=== PATIENT | male | born 1960 | race African-American/Black ===

== ENCOUNTER 2018-02-04 09:37 | Inpatient (IN) | payer OTHER ==
[2018-02-04 10:46] VITALS: BMI 25.7
--- NOTE | 2018-02-04 12:18 | HP ---
CIWA Score - CIWA Score Nausea/Vomitin-No Nausea/No Vomiting Muscle Tremors: None Anxiety: 0-No Anxiety, at Ease Agitation: 0-Normal Activity Paroxysmal Sweats: No Perspiration Orientation: 0-Oriented Tacttile Disturbances: 0-None Auditory Disturbances: 0-None Visual Disturbances: 0-None Headache: 0-None Present CIWA-Ar Total Score: 0 Admission ROS BHS - HPI Allergies/Adverse Reactions: Allergies Allergy/AdvReac Type Severity Reaction Status Date / Time No Known Allergies Allergy Verified 02/04/18 11:17 History of Present Illness: patient here requesting detox from etoh use reports 05/03 and a 6-pk daily , denies w/d symptoms, reports use x 18 years , denies seizures, tremors , blackouts , falls . most recent detox 8 yrs ago at this facility . currently asymptomatic . cannabis use : 15 $ /day cocaine 300 $ x 2-3 x/week tobacco : 6-7 cigs/day , does not want nrt benzo : denies utox + thc , arelis, bzo otoniel 0.000 vss pmhx /htn pshx : left jaw frx psych : denies meds : denies - Ebola screening Have you traveled outside of the country in the last 21 days: No Have you had contact with anyone from an Ebola affected area: No Have you been sick,other than usual withdrawal symptoms: No Do you have a fever: No - Review of Systems Constitutional: No Symptoms Reported EENT: reports: No Symptoms Reported Respiratory: reports: No Symptoms reported Cardiac: reports: No Symptoms Reported GI: reports: No Symptoms Reported : reports: No Symptoms Reported Musculoskeletal: reports: No Symptoms Reported Integumentary: reports: No Symptoms Reported Neuro: reports: No Symptoms reported Endocrine: reports: No Symptoms Reported Hematology: reports: No Symptoms Reported Psychiatric: reports: No Sypmtoms Reported, Judgement Intact, Orientated x3 Other Systems: Reviewed and Negative Patient History - Patient Medical History Hx Asthma: No Hx Chronic Obstructive Pulmonary Disease (COPD): No Hx Cardiac Disorders: No Hx Hypertension: Yes Hx Seizures: No Hx Diabetes: No Hx Gastrointestinal Disorders: Yes (acid reflux) Hx Genitourinary Disorders: No Hx Sexually Transmitted Disorders: No Hx Renal Disease (ESRD): No Hx Depression: No Hx Suicide Attempt: No Hx Schizophrenia: No - Patient Surgical History Past Surgical History: Yes Hx Neurologic Surgery: No Hx Cataract Extraction: No Hx Cardiac Surgery: No Hx Lung Surgery: No Hx Breast Surgery: No Hx Breast Biopsy: No Hx Abdominal Surgery: No Hx Appendectomy: No Hx Cholecystectomy: No Hx Genitourinary Surgery: No Hx Section: No Hx Orthopedic Surgery: Yes (left mandible in 1987) Anesthesia Reaction: No - PPD History Previous Implant?: Yes Documented Results: Positive w/o proof - Smoking Cessation Smoking history: Current every day smoker Have you smoked in the past 12 months: Yes Aproximately how many cigarettes per day: 6 Hx Chewing Tobacco Use: No Initiated information on smoking cessation: No - Substances Abused Crack Route: Smoking Frequency: 3-6 times per week Amount used: $150 Age of first use: 38 Date of Last Use: 02/03/18 Alcohol-vodka/beer Route: Oral Frequency: 3-6 times per week Amount used: 2-3 pts./2-6 pks. Age of first use: 21 Date of Last Use: 02/03/18 Marijuana Route: Smoking Frequency: Daily Amount used: $15 Age of first use: 19 Date of Last Use: 02/03/18 Family Disease History - Family Disease History Family History: Denies Admission Physical Exam BHS - Vital Signs Vital Signs: Vital Signs - 24 hr 02/04/18 10:43 Temperature 97.2 F L Pulse Rate 75 Respiratory 17 Rate Blood Pressure 142/87 - Physical General Appearance: Yes: No Apparent Distress, Nourished, Appropriately Dressed HEENTM: Yes: Within Normal Limits, EOMI, Hearing grossly Normal, Normal ENT Inspection, Normocephalic, Normal Voice, KAVON, Pharynx Normal, Other (reading glasses upper dentures poor dentition) Respiratory: Yes: Within Normal Limits, Chest Non-Tender, Lungs Clear, Normal Breath Sounds, No Respiratory Distress, No Accessory Muscle Use Neck: Yes: Within Normal Limits, No masses,lesions,Nodules, Trachea in good position Cardiology: Yes: Within Normal Limits, Regular Rhythm, Regular Rate Abdominal: Yes: Within Normal Limits, Normal Bowel Sounds, Non Tender, Flat, Soft Genitourinary: Yes: Within Normal Limits Back: Yes: Within Normal Limits, Normal Inspection Musculoskeletal: Yes: Within Normal Limits, full range of Motion, Gait Steady, Pelvis Stable Extremities: Yes: Normal Capillary Refill, Normal Inspection, Normal Range of Motion, Non-Tender, Pedal Edema, Other (edema bilateral symmetrical non- pitting to mid-calf) Neurological: Yes: Within Normal Limits, Fully Oriented, Alert, Motor Strength 5 /5, Normal Mood/Affect, Normal Response Integumentary: Yes: Within Normal Limits, Normal Color, Dry, Warm, Pitting Edema - Diagnostic (1) Cocaine dependence Current Visit: Yes Status: Acute Qualifiers: Substance use status: uncomplicated Qualified Code(s): F14.20 - Cocaine dependence, uncomplicated (2) Cannabis dependence Current Visit: Yes Status: Acute (3) Alcohol dependence Current Visit: Yes Status: Acute Qualifiers: Substance use status: uncomplicated Qualified Code(s): F10.20 - Alcohol dependence, uncomplicated (4) Nicotine dependence Current Visit: Yes Status: Acute Qualifiers: Nicotine product type: cigarettes BHS Breath Alcohol Content Breath Alcohol Content: 0 Urine Drug Screen - Results Drug Screen Negative: No Urine Drug Screen Results: THC-Marijuana, ARELIS-Cocaine, BZO-Benzodiazepines
[2018-02-04] MEDS ORDERED: cloNIDine HCL 0.1 MG TABLET PO PRN (12:25)
[2018-02-04] MEDS ORDERED: guaiFENesin/D-METHORPHAN HB 10 ML UNIT-DOSE CUPS PO PRN (12:39)
[2018-02-04] MEDS ORDERED: MAGNESIUM HYDROX 2400MG/30ML ORAL SUSPENSION 30 ML CUP PO PRN (12:39)
[2018-02-04] MEDS ORDERED: IBUPROFEN 400 MG TABLET (FP) PO PRN (12:39)
[2018-02-04] MEDS ORDERED: P-EPHED 60MG/TRIPROLIDI 2.5MG TABLET PO PRN (12:39)
[2018-02-04] MEDS ORDERED: MENTHOL/PHENOL 1 EACH UD MM PRN (12:39)
[2018-02-04] MEDS ORDERED: MAGNESIUM CITRATE 300 ML BOTTLE PO PRN (12:39)
[2018-02-04] MEDS ORDERED: ACETAMINOPHEN 325 MG TABLET (FP) PO PRN (12:39)
[2018-02-04] MEDS ORDERED: MAG HYDROX/AL HYDROX/SIMETH 30 ML UNIT-DOSE CUP PO PRN (12:39)
[2018-02-04 15:58] LABS: HEMATOCRIT 40.1 % (35.4-49); HEMOGLOBIN 13.3 GM/dL (11.7-16.9); MCH 34.4 pg (25.7-33.7); MCHC 33.1 g/dl (32.0-35.9); MEAN CELL VOLUME 104.1 fl (80-96); MEAN PLT VOLUME 10.4 fl (7.5-11.1); PLATELET COUNT 178 K/MM3 (134-434); RBC 3.85 M/mm3 (4.00-5.60); RDW 13.1 % (11.9-15.9); WHITE BLOOD COUNT 7.5 K/mm3 (4.0-10.0)
[2018-02-04 16:11] LABS: ALBUMIN 3.2 g/dl (3.4-5.0); ALK PHOS 77 U/L (45-117); ANION GAP 3 MMOL/L (8-16); BILIRUBIN,TOTAL 0.4 mg/dL (0.2-1); BLOOD UREA NITROGEN 17 mg/dL (7-18); CALCIUM 8.7 mg/dL (8.5-10.1); CHLORIDE 108 mmol/L (98-107); CO2 30 mmol/L (21-32); CREATININE 0.9 mg/dL (0.55-1.3); GLUCOSE,RANDOM 106 mg/dL (74-106); POTASSIUM 3.7 mmol/L (3.5-5.1); SGOT/AST 24 U/L (15-37); SGPT/ALT 29 U/L (13-61); SODIUM 141 mmol/L (136-145)
[2018-02-04] MEDS: THIAMINE HCL 100 MG TABLET (FP) PO SCH (22:10)
--- NOTE | 2018-02-05 06:47 | HP ---
Psychiatrist Admission - Data Date of interview: 02/05/18 Admission source: Self-referred Identifying data: This is the first [facility] admission for this 57 years old Black male, unemployedon public assistance, homeless Medical History: Significant for hypertension, GERD, PPD+, history of treatment for hepatitis C and surgery for fracture left mandible in 1987. Smokes 6 cigarettes daily Psychiatric History: Denies history of previous psychiatric treatment Additional Comment: Reports 2 previous misdemeanor arrests on charges of drinking in public Vital Signs: Vital Signs - 24 hr 02/04/18 02/04/18 02/05/18 10:43 18:00 00:30 Temperature 97.2 F L Pulse Rate 75 66 Respiratory 17 16 18 Rate Blood Pressure 142/87 153/84 Allergies/Adverse Reactions: Allergies Allergy/AdvReac Type Severity Reaction Status Date / Time No Known Allergies Allergy Verified 02/04/18 11:17 Date of last physical exam: 02/04/18 Concur with the findings of this exam: Yes - Substance Abuse/Tx History Hx Alcohol Use: Yes Hx Substance Use: Yes Substance Use Type: Alcohol (Started drinking alcohol at age 21, consumes 2-3 pints of vodka &2x 6pk of beer daily. Last drank on 02/03/18), Cocaine (Started smoking crack cocaine at age 38, consumes $150 worth 3-6 times weekly. Last smoked on 02/03/18 ), Marijuana (Started so=moking marijuana at age 19, consumes 415 worth daily. Last smoked on 02/03/18) Hx Substance Use Treatment: Yes (2-3 previous inpt detox & 2-3 inpt rehab) Mental Status Exam - Mental Status Exam Alert and Oriented to: Person Cognitive Function: Fair Patient Appearance: Well Groomed Mood: Irritable Affect: Appropriate Patient Behavior: Cooperative Speech Pattern: Clear Voice Loudness: Normal Thought Process: Intact Thought Disorder: Not Present Hallucinations: Denies Suicidal Ideation: Denies Homicidal Ideation: Denies Insight/Judgement: Fair Sleep: Fair Appetite: Good Muscle strength/Tone: Normal Gait/Station: Normal Psychiatric Findings - Problem List ([place] 1, 2,3) (1) Alcohol dependence Current Visit: Yes Status: Acute Qualifiers: Substance use status: uncomplicated Qualified Code(s): F10.20 - Alcohol dependence, uncomplicated (2) Cocaine dependence Current Visit: Yes Status: Acute Qualifiers: Substance use status: uncomplicated Qualified Code(s): F14.20 - Cocaine dependence, uncomplicated (3) Cannabis dependence Current Visit: Yes Status: Acute (4) Nicotine dependence Current Visit: Yes Status: Chronic Qualifiers: Nicotine product type: cigarettes (5) Substance induced mood disorder Current Visit: Yes Status: Acute (6) HTN (hypertension) Current Visit: Yes Status: Chronic (7) Hepatitis C Current Visit: Yes Status: Suspected (8) GERD (gastroesophageal reflux disease) Current Visit: Yes Status: Chronic - Initial Treatment Plan Initial Treatment Plan: Monitor progress
[2018-02-05] MEDS ORDERED: amLODIPine BESYLATE 5 MG TABLET (FP) PO SCH (10:00)
--- NOTE | 2018-02-05 10:11 | PN ---
[facility] Progress Note Note: PT REPORTS HX OF HTN AND ON HYDROCHLOROTHIAZIDE 25 MG/LISINOPRIL 20 MG PO DAILY AND NORVASC 5 MG PO DAILY. PT INSISTS HE HAS TO TAKE HIS MEDICATION ORDERED BY HIS DOCTOR. PT REPORT HE HAS A PMD AT [facility] [address] AND DOES NOT REMEMBER HIS NAME. SEEN ON PT'S OUTSIDE PHARMACY, PT IS TAKING ABOVE MEDICATIONS AND ANGRY THAT HE IS NOT ON IT. Vital Signs - 24 hr 02/04/18 02/04/18 02/05/18 10:43 18:00 00:30 Temperature 97.2 F L Pulse Rate 75 66 Respiratory 17 16 18 Rate Blood Pressure 142/87 153/84 02/05/18 06:57 Temperature 98.2 F Pulse Rate 89 Respiratory 18 Rate Blood Pressure 153/84 PLAN: REORDER LISINOPRIL 20 MG AND HYDROCHLOROTHIAZIDE 25 MG PO DAILY. HOLD NORVASC 5 MG FOR NOW. MAY ADD NORVASC 5 MG IF BP STILL UNCONTROLLED.
[2018-02-05] MEDS: PRENATAL VITAMINS W/ FOLIC ACID TABLET (FP) PO SCH (10:36)
[2018-02-05] MEDS: LISINOPRIL 20 MG TABLET (FP) PO SCH (10:38)
[2018-02-05] MEDS: HYDROCHLOROTHIAZIDE 25 MG TABLET (FP) PO SCH (10:38)
[2018-02-05] MEDS: THIAMINE HCL 100 MG TABLET (FP) PO SCH (22:02)
[2018-02-06] MEDS: LISINOPRIL 20 MG TABLET (FP) PO SCH (10:44)
[2018-02-06] MEDS: HYDROCHLOROTHIAZIDE 25 MG TABLET (FP) PO SCH (10:44)
[2018-02-06] MEDS: PRENATAL VITAMINS W/ FOLIC ACID TABLET (FP) PO SCH (10:44)
[2018-02-06] MEDS: THIAMINE HCL 100 MG TABLET (FP) PO SCH (22:12)
[2018-02-07] MEDS: HYDROCHLOROTHIAZIDE 25 MG TABLET (FP) PO SCH (10:25)
[2018-02-07] MEDS: LISINOPRIL 20 MG TABLET (FP) PO SCH (10:25)
[2018-02-07] MEDS: PRENATAL VITAMINS W/ FOLIC ACID TABLET (FP) PO SCH (10:26)
[2018-02-07] MEDS: THIAMINE HCL 100 MG TABLET (FP) PO SCH (21:47)
[2018-02-07] MEDS: MELATONIN 5 MG TABLETS PO PRN (21:47)
[2018-02-08] MEDS: LISINOPRIL 20 MG TABLET (FP) PO SCH (10:41)
[2018-02-08] MEDS: HYDROCHLOROTHIAZIDE 25 MG TABLET (FP) PO SCH (10:41)
[2018-02-08] MEDS: PRENATAL VITAMINS W/ FOLIC ACID TABLET (FP) PO SCH (10:41)
[2018-02-08] MEDS: MELATONIN 5 MG TABLETS PO PRN (21:40)
[2018-02-08] MEDS: THIAMINE HCL 100 MG TABLET (FP) PO SCH (21:40)
[2018-02-09] MEDS: hydrOXYzine PAMOATE 25 MG CAPSULE (FP) PO PRN (06:35)
[2018-02-09] MEDS: LISINOPRIL 20 MG TABLET (FP) PO SCH (10:38)
[2018-02-09] MEDS: HYDROCHLOROTHIAZIDE 25 MG TABLET (FP) PO SCH (10:38)
[2018-02-09] MEDS: PRENATAL VITAMINS W/ FOLIC ACID TABLET (FP) PO SCH (10:38)
[2018-02-09] MEDS: THIAMINE HCL 100 MG TABLET (FP) PO SCH (21:25)
[2018-02-10] MEDS: LISINOPRIL 20 MG TABLET (FP) PO SCH (10:56)
[2018-02-10] MEDS: PRENATAL VITAMINS W/ FOLIC ACID TABLET (FP) PO SCH (10:56)
[2018-02-10] MEDS: HYDROCHLOROTHIAZIDE 25 MG TABLET (FP) PO SCH (10:56)
[2018-02-10] MEDS: amLODIPine BESYLATE 5 MG TABLET (FP) PO SCH (12:07)
--- NOTE | 2018-02-10 12:17 | PN ---
S Progress Note (SOAP) Subjective: C/O PAIN AND A BUMP TO LEFT SIDE OF LEFT SOLE STATING HE HAS HAD THIS BUMP FOR MORE THAN A YEAR BUT IS NOW FEELING PAIN ON THE AREA. ALERT O X 3. AMBULATES WITH A WALKER. FOOT EXAM;DRY AND ASHY; SOLE WITH CALLUSED SKIN. PLAN:WARM FOOT SOAK DIRECTED LAC HYDRIN CREAM 12% DAILY DIRECTED. BACITRACIN OINTMENT TO AFFECTED AREA DAILY
[2018-02-10] MEDS: AMMONIUM LACTATE 12% LOTION 225 GM BOTTLE TP SCH (14:50)
[2018-02-10] MEDS: BACITRACIN 15 GM TUBE TOPICAL OINTMENT TP SCH ×2 (14:50→21:51)
[2018-02-10] MEDS: THIAMINE HCL 100 MG TABLET (FP) PO SCH (21:51)
[2018-02-11] MEDS: LISINOPRIL 20 MG TABLET (FP) PO SCH (10:28)
[2018-02-11] MEDS: amLODIPine BESYLATE 5 MG TABLET (FP) PO SCH (10:28)
[2018-02-11] MEDS: HYDROCHLOROTHIAZIDE 25 MG TABLET (FP) PO SCH (10:28)
[2018-02-11] MEDS: AMMONIUM LACTATE 12% LOTION 225 GM BOTTLE TP SCH (10:29)
[2018-02-11] MEDS: BACITRACIN 15 GM TUBE TOPICAL OINTMENT TP SCH ×2 (10:29→21:53)
[2018-02-11] MEDS: PRENATAL VITAMINS W/ FOLIC ACID TABLET (FP) PO SCH (10:30)
[2018-02-11] MEDS: THIAMINE HCL 100 MG TABLET (FP) PO SCH (21:53)
[2018-02-12] MEDS: LISINOPRIL 20 MG TABLET (FP) PO SCH (10:27)
[2018-02-12] MEDS: HYDROCHLOROTHIAZIDE 25 MG TABLET (FP) PO SCH (10:27)
[2018-02-12] MEDS: amLODIPine BESYLATE 5 MG TABLET (FP) PO SCH (10:27)
[2018-02-12] MEDS: AMMONIUM LACTATE 12% LOTION 225 GM BOTTLE TP SCH (10:28)
[2018-02-12] MEDS: BACITRACIN 15 GM TUBE TOPICAL OINTMENT TP SCH ×2 (10:28→21:48)
[2018-02-12] MEDS: PRENATAL VITAMINS W/ FOLIC ACID TABLET (FP) PO SCH (10:28)
[2018-02-12] MEDS: THIAMINE HCL 100 MG TABLET (FP) PO SCH (21:48)
[2018-02-12] MEDS: hydrOXYzine PAMOATE 25 MG CAPSULE (FP) PO PRN (21:48)
[2018-02-13] MEDS: AMMONIUM LACTATE 12% LOTION 225 GM BOTTLE TP SCH (10:27)
[2018-02-13] MEDS: amLODIPine BESYLATE 5 MG TABLET (FP) PO SCH (10:28)
[2018-02-13] MEDS: PRENATAL VITAMINS W/ FOLIC ACID TABLET (FP) PO SCH (10:28)
[2018-02-13] MEDS: HYDROCHLOROTHIAZIDE 25 MG TABLET (FP) PO SCH (10:28)
[2018-02-13] MEDS: BACITRACIN 15 GM TUBE TOPICAL OINTMENT TP SCH ×2 (10:28→21:54)
[2018-02-13] MEDS: LISINOPRIL 20 MG TABLET (FP) PO SCH (10:28)
[2018-02-13] MEDS: THIAMINE HCL 100 MG TABLET (FP) PO SCH (21:54)
[2018-02-14] MEDS: LISINOPRIL 20 MG TABLET (FP) PO SCH (10:26)
[2018-02-14] MEDS: HYDROCHLOROTHIAZIDE 25 MG TABLET (FP) PO SCH (10:26)
[2018-02-14] MEDS: amLODIPine BESYLATE 5 MG TABLET (FP) PO SCH (10:26)
[2018-02-14] MEDS: BACITRACIN 15 GM TUBE TOPICAL OINTMENT TP SCH ×2 (10:27→21:45)
[2018-02-14] MEDS: PRENATAL VITAMINS W/ FOLIC ACID TABLET (FP) PO SCH (10:27)
[2018-02-14] MEDS: AMMONIUM LACTATE 12% LOTION 225 GM BOTTLE TP SCH (10:27)
[2018-02-14] MEDS: THIAMINE HCL 100 MG TABLET (FP) PO SCH (21:45)
[2018-02-15] MEDS: LISINOPRIL 20 MG TABLET (FP) PO SCH (10:28)
[2018-02-15] MEDS: PRENATAL VITAMINS W/ FOLIC ACID TABLET (FP) PO SCH (10:28)
[2018-02-15] MEDS: amLODIPine BESYLATE 5 MG TABLET (FP) PO SCH (10:28)
[2018-02-15] MEDS: AMMONIUM LACTATE 12% LOTION 225 GM BOTTLE TP SCH (10:29)
[2018-02-15] MEDS: BACITRACIN 15 GM TUBE TOPICAL OINTMENT TP SCH ×2 (10:29→21:55)
[2018-02-15] MEDS: HYDROCHLOROTHIAZIDE 25 MG TABLET (FP) PO SCH (10:29)
[2018-02-15] MEDS: THIAMINE HCL 100 MG TABLET (FP) PO SCH (21:55)
[2018-02-16] MEDS: PRENATAL VITAMINS W/ FOLIC ACID TABLET (FP) PO SCH (10:18)
[2018-02-16] MEDS: amLODIPine BESYLATE 5 MG TABLET (FP) PO SCH (10:18)
[2018-02-16] MEDS: LISINOPRIL 20 MG TABLET (FP) PO SCH (10:18)
[2018-02-16] MEDS: HYDROCHLOROTHIAZIDE 25 MG TABLET (FP) PO SCH (10:18)
[2018-02-16] MEDS: BACITRACIN 15 GM TUBE TOPICAL OINTMENT TP SCH ×2 (10:19→21:49)
[2018-02-16] MEDS: AMMONIUM LACTATE 12% LOTION 225 GM BOTTLE TP SCH (10:19)
[2018-02-16] MEDS: THIAMINE HCL 100 MG TABLET (FP) PO SCH (21:49)
[2018-02-17] MEDS: amLODIPine BESYLATE 5 MG TABLET (FP) PO SCH (10:12)
[2018-02-17] MEDS: PRENATAL VITAMINS W/ FOLIC ACID TABLET (FP) PO SCH (10:12)
[2018-02-17] MEDS: HYDROCHLOROTHIAZIDE 25 MG TABLET (FP) PO SCH (10:12)
[2018-02-17] MEDS: LISINOPRIL 20 MG TABLET (FP) PO SCH (10:12)
[2018-02-17] MEDS: BACITRACIN 15 GM TUBE TOPICAL OINTMENT TP SCH ×2 (10:13→21:53)
[2018-02-17] MEDS: AMMONIUM LACTATE 12% LOTION 225 GM BOTTLE TP SCH (10:13)
--- NOTE | 2018-02-17 14:28 | PN ---
BHS Progress Note Note: Patient reports experiencing difficulty to sleep despite taking Melatonin at bedtime. Will order Belsomra 10 mg po HS prn for insomnia
[2018-02-17] MEDS: THIAMINE HCL 100 MG TABLET (FP) PO SCH (21:53)
[2018-02-17] MEDS: SUVOREXANT 10 MG TABLET PO PRN (21:53)
[2018-02-18] MEDS: AMMONIUM LACTATE 12% LOTION 225 GM BOTTLE TP SCH (10:17)
[2018-02-18] MEDS: amLODIPine BESYLATE 5 MG TABLET (FP) PO SCH (10:18)
[2018-02-18] MEDS: BACITRACIN 15 GM TUBE TOPICAL OINTMENT TP SCH ×2 (10:18→21:37)
[2018-02-18] MEDS: LISINOPRIL 20 MG TABLET (FP) PO SCH (10:18)
[2018-02-18] MEDS: HYDROCHLOROTHIAZIDE 25 MG TABLET (FP) PO SCH (10:18)
[2018-02-18] MEDS: PRENATAL VITAMINS W/ FOLIC ACID TABLET (FP) PO SCH (10:19)
[2018-02-18] MEDS: THIAMINE HCL 100 MG TABLET (FP) PO SCH (21:37)
[2018-02-18] MEDS: SUVOREXANT 10 MG TABLET PO PRN (21:38)
[2018-02-19] MEDS: PRENATAL VITAMINS W/ FOLIC ACID TABLET (FP) PO SCH (10:39)
[2018-02-19] MEDS: HYDROCHLOROTHIAZIDE 25 MG TABLET (FP) PO SCH (10:39)
[2018-02-19] MEDS: amLODIPine BESYLATE 5 MG TABLET (FP) PO SCH (10:39)
[2018-02-19] MEDS: LISINOPRIL 20 MG TABLET (FP) PO SCH (10:39)
[2018-02-19] MEDS: AMMONIUM LACTATE 12% LOTION 225 GM BOTTLE TP SCH (10:40)
[2018-02-19] MEDS: BACITRACIN 15 GM TUBE TOPICAL OINTMENT TP SCH ×2 (10:40→22:11)
[2018-02-19] MEDS: THIAMINE HCL 100 MG TABLET (FP) PO SCH (22:09)
[2018-02-19] MEDS: SUVOREXANT 10 MG TABLET PO PRN (22:11)
[2018-02-20] MEDS: LISINOPRIL 20 MG TABLET (FP) PO SCH (10:22)
[2018-02-20] MEDS: amLODIPine BESYLATE 5 MG TABLET (FP) PO SCH (10:22)
[2018-02-20] MEDS: HYDROCHLOROTHIAZIDE 25 MG TABLET (FP) PO SCH (10:22)
[2018-02-20] MEDS: PRENATAL VITAMINS W/ FOLIC ACID TABLET (FP) PO SCH (10:22)
[2018-02-20] MEDS: AMMONIUM LACTATE 12% LOTION 225 GM BOTTLE TP SCH (10:23)
[2018-02-20] MEDS: BACITRACIN 15 GM TUBE TOPICAL OINTMENT TP SCH ×2 (10:23→22:07)
--- NOTE | 2018-02-20 17:55 | PN ---
BHS Progress Note Note: Psychiatric nurse practitoner note: Pooja 10mg renewed. verbal consent given.
[2018-02-20] MEDS: SUVOREXANT 10 MG TABLET PO PRN (22:07)
[2018-02-20] MEDS: THIAMINE HCL 100 MG TABLET (FP) PO SCH (22:07)
[2018-02-21] MEDS: PRENATAL VITAMINS W/ FOLIC ACID TABLET (FP) PO SCH (10:24)
[2018-02-21] MEDS: AMMONIUM LACTATE 12% LOTION 225 GM BOTTLE TP SCH (10:24)
[2018-02-21] MEDS: BACITRACIN 15 GM TUBE TOPICAL OINTMENT TP SCH ×2 (10:24→21:52)
[2018-02-21] MEDS: LISINOPRIL 20 MG TABLET (FP) PO SCH (10:24)
[2018-02-21] MEDS: amLODIPine BESYLATE 5 MG TABLET (FP) PO SCH (10:24)
[2018-02-21] MEDS: HYDROCHLOROTHIAZIDE 25 MG TABLET (FP) PO SCH (10:24)
[2018-02-21] MEDS: SUVOREXANT 10 MG TABLET PO PRN (21:51)
[2018-02-21] MEDS: THIAMINE HCL 100 MG TABLET (FP) PO SCH (21:52)
[2018-02-22] MEDS: LISINOPRIL 20 MG TABLET (FP) PO SCH (10:35)
[2018-02-22] MEDS: amLODIPine BESYLATE 5 MG TABLET (FP) PO SCH (10:35)
[2018-02-22] MEDS: HYDROCHLOROTHIAZIDE 25 MG TABLET (FP) PO SCH (10:35)
[2018-02-22] MEDS: PRENATAL VITAMINS W/ FOLIC ACID TABLET (FP) PO SCH (10:36)
[2018-02-22] MEDS: BACITRACIN 15 GM TUBE TOPICAL OINTMENT TP SCH ×2 (10:36→21:47)
[2018-02-22] MEDS: AMMONIUM LACTATE 12% LOTION 225 GM BOTTLE TP SCH (10:36)
[2018-02-22] MEDS: THIAMINE HCL 100 MG TABLET (FP) PO SCH (21:47)
[2018-02-22] MEDS: SUVOREXANT 10 MG TABLET PO PRN (21:48)
[2018-02-23] MEDS: LISINOPRIL 20 MG TABLET (FP) PO SCH (10:03)
[2018-02-23] MEDS: amLODIPine BESYLATE 5 MG TABLET (FP) PO SCH (10:03)
[2018-02-23] MEDS: BACITRACIN 15 GM TUBE TOPICAL OINTMENT TP SCH ×3 (10:03→22:34)
[2018-02-23] MEDS: AMMONIUM LACTATE 12% LOTION 225 GM BOTTLE TP SCH (10:03)
[2018-02-23] MEDS: HYDROCHLOROTHIAZIDE 25 MG TABLET (FP) PO SCH (10:03)
[2018-02-23] MEDS: PRENATAL VITAMINS W/ FOLIC ACID TABLET (FP) PO SCH (10:04)
[2018-02-23] MEDS: THIAMINE HCL 100 MG TABLET (FP) PO SCH (22:06)
[2018-02-23] MEDS: MELATONIN 5 MG TABLETS PO PRN (22:06)
[2018-02-24] MEDS: HYDROCHLOROTHIAZIDE 25 MG TABLET (FP) PO SCH (10:49)
[2018-02-24] MEDS: amLODIPine BESYLATE 5 MG TABLET (FP) PO SCH (10:49)
[2018-02-24] MEDS: LISINOPRIL 20 MG TABLET (FP) PO SCH (10:49)
[2018-02-24] MEDS: AMMONIUM LACTATE 12% LOTION 225 GM BOTTLE TP SCH (10:50)
[2018-02-24] MEDS: PRENATAL VITAMINS W/ FOLIC ACID TABLET (FP) PO SCH (10:50)
[2018-02-24] MEDS: BACITRACIN 15 GM TUBE TOPICAL OINTMENT TP SCH ×2 (10:50→22:14)
[2018-02-24] MEDS: THIAMINE HCL 100 MG TABLET (FP) PO SCH (22:14)
[2018-02-24] MEDS: MELATONIN 5 MG TABLETS PO PRN (22:14)
[2018-02-24] MEDS: hydrOXYzine PAMOATE 25 MG CAPSULE (FP) PO PRN (22:16)
[2018-02-25] MEDS: amLODIPine BESYLATE 5 MG TABLET (FP) PO SCH (10:46)
[2018-02-25] MEDS: HYDROCHLOROTHIAZIDE 25 MG TABLET (FP) PO SCH (10:46)
[2018-02-25] MEDS: LISINOPRIL 20 MG TABLET (FP) PO SCH (10:46)
[2018-02-25] MEDS: PRENATAL VITAMINS W/ FOLIC ACID TABLET (FP) PO SCH (10:47)
[2018-02-25] MEDS: AMMONIUM LACTATE 12% LOTION 225 GM BOTTLE TP SCH (10:47)
[2018-02-25] MEDS: BACITRACIN 15 GM TUBE TOPICAL OINTMENT TP SCH ×2 (10:47→22:01)
[2018-02-25] MEDS: THIAMINE HCL 100 MG TABLET (FP) PO SCH (22:02)
[2018-02-26] MEDS: HYDROCHLOROTHIAZIDE 25 MG TABLET (FP) PO SCH (10:38)
[2018-02-26] MEDS: amLODIPine BESYLATE 5 MG TABLET (FP) PO SCH (10:38)
[2018-02-26] MEDS: LISINOPRIL 20 MG TABLET (FP) PO SCH (10:38)
[2018-02-26] MEDS: AMMONIUM LACTATE 12% LOTION 225 GM BOTTLE TP SCH (10:39)
[2018-02-26] MEDS: BACITRACIN 15 GM TUBE TOPICAL OINTMENT TP SCH ×2 (10:39→21:53)
[2018-02-26] MEDS: PRENATAL VITAMINS W/ FOLIC ACID TABLET (FP) PO SCH (10:40)
[2018-02-26] MEDS: THIAMINE HCL 100 MG TABLET (FP) PO SCH (21:53)
[2018-02-26] MEDS: MELATONIN 5 MG TABLETS PO PRN (21:53)
[2018-02-26] MEDS: SUVOREXANT 10 MG TABLET PO PRN (22:54)
--- NOTE | 2018-02-26 22:58 | PN ---
[facility] Progress Note Note: Psychiatry Attending's on-call note : Asked to renew order for belsomra. In response to patient's complaint of refractory insomnia. Chart reviewed. Vitals checked. History taken. Spoke to the patient. Via telephone. Mr Self endorses favorable results from suvorexant. No adverse effects. Improved sleep patterns. Enjoys restful night. Patient insists on the availability of that medication. Discussed : Side effects/benefits of belsomra + virtues of good sleep hygiene. Progress notes from Dr Ac + ALEKSANDRA Sanchez are read and appreciated. Intervention : belsomra 10 mg po hs prn. Re-ordered. Discussed with ADY Vang.
[2018-02-27] MEDS: amLODIPine BESYLATE 5 MG TABLET (FP) PO SCH (11:00)
[2018-02-27] MEDS: LISINOPRIL 20 MG TABLET (FP) PO SCH (11:01)
[2018-02-27] MEDS: PRENATAL VITAMINS W/ FOLIC ACID TABLET (FP) PO SCH (11:01)
[2018-02-27] MEDS: HYDROCHLOROTHIAZIDE 25 MG TABLET (FP) PO SCH (11:01)
[2018-02-27] MEDS: AMMONIUM LACTATE 12% LOTION 225 GM BOTTLE TP SCH (11:02)
[2018-02-27] MEDS: BACITRACIN 15 GM TUBE TOPICAL OINTMENT TP SCH ×2 (11:02→21:56)
[2018-02-27] MEDS: THIAMINE HCL 100 MG TABLET (FP) PO SCH (21:56)
[2018-02-27] MEDS: SUVOREXANT 10 MG TABLET PO PRN (21:56)
[2018-02-28] MEDS: LISINOPRIL 20 MG TABLET (FP) PO SCH (10:45)
[2018-02-28] MEDS: HYDROCHLOROTHIAZIDE 25 MG TABLET (FP) PO SCH (10:45)
[2018-02-28] MEDS: amLODIPine BESYLATE 5 MG TABLET (FP) PO SCH (10:45)
[2018-02-28] MEDS: PRENATAL VITAMINS W/ FOLIC ACID TABLET (FP) PO SCH (10:46)
[2018-02-28] MEDS: AMMONIUM LACTATE 12% LOTION 225 GM BOTTLE TP SCH (10:46)
[2018-02-28] MEDS: BACITRACIN 15 GM TUBE TOPICAL OINTMENT TP SCH ×2 (10:46→21:42)
[2018-02-28] MEDS: THIAMINE HCL 100 MG TABLET (FP) PO SCH (21:42)
[2018-02-28] MEDS: SUVOREXANT 10 MG TABLET PO PRN (21:42)
[2018-03-01] MEDS: AMMONIUM LACTATE 12% LOTION 225 GM BOTTLE TP SCH (10:07)
[2018-03-01] MEDS: LISINOPRIL 20 MG TABLET (FP) PO SCH (10:07)
[2018-03-01] MEDS: HYDROCHLOROTHIAZIDE 25 MG TABLET (FP) PO SCH (10:07)
[2018-03-01] MEDS: amLODIPine BESYLATE 5 MG TABLET (FP) PO SCH (10:07)
[2018-03-01] MEDS: BACITRACIN 15 GM TUBE TOPICAL OINTMENT TP SCH ×2 (10:07→21:59)
[2018-03-01] MEDS: PRENATAL VITAMINS W/ FOLIC ACID TABLET (FP) PO SCH (10:08)
[2018-03-01] MEDS: SUVOREXANT 10 MG TABLET PO PRN (21:58)
[2018-03-01] MEDS: THIAMINE HCL 100 MG TABLET (FP) PO SCH (21:59)
[2018-03-02] MEDS: HYDROCHLOROTHIAZIDE 25 MG TABLET (FP) PO SCH (10:12)
[2018-03-02] MEDS: LISINOPRIL 20 MG TABLET (FP) PO SCH (10:12)
[2018-03-02] MEDS: amLODIPine BESYLATE 5 MG TABLET (FP) PO SCH (10:12)
[2018-03-02] MEDS: BACITRACIN 15 GM TUBE TOPICAL OINTMENT TP SCH ×2 (10:13→21:59)
[2018-03-02] MEDS: AMMONIUM LACTATE 12% LOTION 225 GM BOTTLE TP SCH (10:13)
[2018-03-02] MEDS: PRENATAL VITAMINS W/ FOLIC ACID TABLET (FP) PO SCH (10:13)
[2018-03-02] MEDS: THIAMINE HCL 100 MG TABLET (FP) PO SCH (22:00)
[2018-03-03] MEDS: LISINOPRIL 20 MG TABLET (FP) PO SCH (10:50)
[2018-03-03] MEDS: amLODIPine BESYLATE 5 MG TABLET (FP) PO SCH (10:50)
[2018-03-03] MEDS: HYDROCHLOROTHIAZIDE 25 MG TABLET (FP) PO SCH (10:50)
[2018-03-03] MEDS: AMMONIUM LACTATE 12% LOTION 225 GM BOTTLE TP SCH (10:51)
[2018-03-03] MEDS: BACITRACIN 15 GM TUBE TOPICAL OINTMENT TP SCH ×2 (10:51→21:48)
[2018-03-03] MEDS: PRENATAL VITAMINS W/ FOLIC ACID TABLET (FP) PO SCH (10:51)
--- NOTE | 2018-03-03 15:06 | PN ---
BHS Progress Note Note: Prescription Bp meds sent to [facility] in view of pt's discharge in the a.m per ADY Anderson's request.
--- NOTE | 2018-03-03 15:40 | PN ---
Psychiatric Progress Note Vital Signs: Vital Signs Period Temp Pulse Resp BP Sys/Cohen Pulse Ox Last 24 Hr 99.5 F 70 16-18 128/84 Date of Session: 03/03/18 Chief Complaint:: Discharge visit HPI: Case of a 57 y/o AA male admitted to [address] to address alcohol , cocaine and marihuana dependence. Rehabilitation treatment is completed. Patient is scheduled for dischareg on 03/04/18. ROS: Hypertension and GERD have been addressed. Patient is alert, fully oriented , ambulatory (with cane). No somatic complaints offered. Current Medications: Active Medications Generic Name Dose Route Start Last Admin Trade Name Freq PRN Reason Stop Dose Admin Acetaminophen 650 mg 02/04/18 12:39 Tylenol - PO Q4H PRN FEVER Al Hydroxide/Mg Hydroxide 30 ml 02/04/18 12:39 Mylanta Oral Suspension - PO Q6H PRN DYSPEPSIA Amlodipine Besylate 5 mg 02/10/18 12:00 03/03/18 10:50 Norvasc - PO 5 mg DAILY NOEMÍ Administration Bacitracin 1 applic 02/10/18 12:15 03/03/18 10:51 Bacitracin - TP Not Given BID NOEMÍ Eucalyptus/Menthol/Phenol/Sorbitol 1 each 02/04/18 12:39 Cepastat Lozenge - MM Q4H PRN SORE THROAT Guaifenesin 10 ml 02/04/18 12:39 Robitussin Dm - PO Q6H PRN COUGH Hydrochlorothiazide 25 mg 02/05/18 10:15 03/03/18 10:50 Hctz - PO 25 mg DAILY NOEMÍ Administration Hydroxyzine Pamoate 25 mg 02/04/18 12:39 02/24/18 22:16 Vistaril - PO 25 mg Q4H PRN Administration AGITATION Ibuprofen 400 mg 02/04/18 12:39 02/07/18 10:25 Motrin - PO 400 mg Q6H PRN Administration Pain level 4-6 Lactic Acid 1 applic 02/10/18 12:15 03/03/18 10:51 Lac-Hydrin 12 TP Not Given DAILY NOEMÍ Lisinopril 20 mg 02/05/18 10:15 03/03/18 10:50 Prinivil PO 20 mg DAILY NOEMÍ Administration Magnesium Citrate 300 ml 02/04/18 12:39 Citroma - PO Q48H PRN CONSTIPATION Magnesium Hydroxide 30 ml 02/04/18 12:39 Milk Of Magnesia - PO DAILY PRN CONSTIPATION Multivit/Folic Acid/Iron 1 tab 02/05/18 10:00 03/03/18 10:51 Vitamins (Sjr) - PO Not Given DAILY NOEMÍ Pseudoephedrine/Triprolidine 1 combo 02/04/18 12:39 Actifed - PO TID PRN NASAL CONGESTION Thiamine HCl 100 mg 02/04/18 22:00 03/02/18 22:00 Vitamin B1 - PO Not Given HS NOEMÍ Medication(s) Change(s): Not applicable. Mr Self is not on psychotropic medications. Current Side Effect: No Lab tests ordered: No Lab tests reviewed: Yes Provider note:: Patient has completed this program. He has met his treatment goals and he will continue to address his issues in outpatient setting at the [facility] in [place], [place] (see counselor referral package for details). Scheduled for intake on 03/04/18 at 11:00 AM. Mr Self is referred to the [facility] ([phone]) for assisted placement. Medical issues ( hypertension,GERD) were addressed. Patient is observed as neatly groomed, conversant, relaxed, pleasant and cognitively intact. Endorses euthymic mood, adequate energy level, improved sleep patterns and motivation for maintenance of sobriety. Patient declares that he has benefited from his care at [facility] and he indicates his intent to incorporate in his lifestyle the principles learned in therapy sessions. Determined to distanced himself from triggers that could lead to relapses. Patient comments that he will invest his energy into addressing issues of chronic unemployment, housing and maintenance of wellness. Adherent to 12 step doctrine. Treated on [address] [place] without psychotropic medications. Stable mental status. Patient is not a danger to self or others. Baseline. Awaits discharge scheduled for 03/04/18. Total face to face time:: 35 Mental Status Exam - Mental Status Exam Alert and Oriented to: Time, Place, Person Cognitive Function: Good Patient Appearance: Well Groomed Mood: Hopeful, Euthymic Affect: Appropriate, Normal Range Patient Behavior: Appropriate, Cooperative Speech Pattern: Clear, Appropriate Voice Loudness: Normal Thought Process: Intact, Goal Oriented Thought Disorder: Not Present Hallucinations: Denies Suicidal Ideation: Denies Homicidal Ideation: Denies Insight/Judgement: Good Sleep: Well Appetite: Good Muscle strength/Tone: Normal Gait/Station: Other (walks with a cane due to foot problems) Psychiatric Treatment Plan - Problem List (1) Alcohol dependence Current Visit: Yes Qualifiers: Substance use status: uncomplicated Qualified Code(s): F10.20 - Alcohol dependence, uncomplicated Comment: . (2) Cannabis dependence Current Visit: Yes Comment: . (3) Cocaine dependence Current Visit: Yes Qualifiers: Substance use status: uncomplicated Qualified Code(s): F14.20 - Cocaine dependence, uncomplicated Comment: . (4) Nicotine dependence Current Visit: Yes Qualifiers: Nicotine product type: cigarettes Comment: .
[2018-03-03] MEDS: THIAMINE HCL 100 MG TABLET (FP) PO SCH (21:48)
[2018-03-04 06:50] VITALS: BP 139/95; PULSE 72; TEMP 98.2
[2018-03-04] MEDS: HYDROCHLOROTHIAZIDE 25 MG TABLET (FP) PO SCH (09:58)
[2018-03-04] MEDS: amLODIPine BESYLATE 5 MG TABLET (FP) PO SCH (09:58)
[2018-03-04] MEDS: BACITRACIN 15 GM TUBE TOPICAL OINTMENT TP SCH (09:58)
[2018-03-04] MEDS: LISINOPRIL 20 MG TABLET (FP) PO SCH (09:58)
[2018-03-04] MEDS: PRENATAL VITAMINS W/ FOLIC ACID TABLET (FP) PO SCH (09:59)
[2018-03-04] MEDS: AMMONIUM LACTATE 12% LOTION 225 GM BOTTLE TP SCH (09:59)
--- NOTE | 2018-03-04 11:25 | PN ---
[facility] Progress Note Note: Called by nursing staff to enter discharge order for patient who already left the unit to get transportation to his destination. He is referred to the [facility] housing and [facility] at [address] [place] [address] for outpatient treatment. According to nursing staff. patient is stable on discharge. Refer to staff note for further information
== END 2018-03-04 10:30 | disposition home or self-care (01) | DRG 772 ==
LOC: YASAS 09:37 → UNDOADMIN 15:42 → Y3N 15:42 → Y5N 16:26
PROVIDERS: ADMIT Psychiatry & Neurology Psychiatry; ATTEND Psychiatry & Neurology Psychiatry
PROC: HZ42ZZZ Group Counseling for Substance Abuse Treatment, Cognitive-Behavioral (ICD-10-PCS; principal; 2018-02-04)
DX: F10.20 Alcohol dependence, uncomplicated (principal); F14.20 Cocaine dependence, uncomplicated; F12.20 Cannabis dependence, uncomplicated; F17.210 Nicotine dependence, cigarettes, uncomplicated; F19.24 Other psychoactive substance dependence with psychoactive substance-induced mood disorder; I10 Essential (primary) hypertension; K21.9 Gastro-esophageal reflux disease without esophagitis; R76.11 Nonspecific reaction to tuberculin skin test without active tuberculosis; Z86.19 Personal history of other infectious and parasitic diseases; L84 Corns and callosities; R26.89 Other abnormalities of gait and mobility; Z99.89 Dependence on other enabling machines and devices
CPT/HCPCS: 36415; 71045-TC-FY; 80053; 85027; 86593; J0735

== ENCOUNTER 2018-08-14 13:15 | Inpatient (IN) | payer OTHER ==
[2018-08-14 14:13] VITALS: BMI 23.3
--- NOTE | 2018-08-14 15:03 | HP ---
CIWA Score Nausea/Vomitin Muscle Tremors: 2 Anxiety: 2 Agitation: 2 Paroxysmal Sweats: 1-Minimal Palms Moist Orientation: 0-Oriented Tacttile Disturbances: 1-Very Mild Itch/Numbness Auditory Disturbances: 1-Very Mild Visual Disturbances: 0-None Headache: 2-Mild CIWA-Ar Total Score: 13 - Admission Criteria OASAS Guidelines: Admission for Medically Managed Detox: Requires at least one of the followin. CIWA greater than 12 2. Seizures within the past 24 hours 3. Delirium tremens within the past 24 hours 4. Hallucinations within the past 24 hours 5. Acute intervention needed for co occurring medical disorder 6. Acute intervention needed for co occurring psychiatric disorder 7. Severe withdrawal that cannot be handled at a lower level of care (continued vomiting, continued diarrhea, abnormal vital signs) requiring intravenous medication and/or fluids 8. Admission ROS BHS - HPI Chief Complaint: I need help to stop drinking alcohol,cocaine and marijuana Allergies/Adverse Reactions: Allergies Allergy/AdvReac Type Severity Reaction Status Date / Time No Known Allergies Allergy Verified 08/14/18 14:07 History of Present Illness: this 58 years old male with alcohol,cocaine and marijuana dependence,seeking detox,withdrawal symptom had previous admission before last [facility] 02/04/18 to 03/04/18 history of hypertension hepatitis c treated at [facility] syncope alcohol related weight loss longest period of sobriety 5 years plan for rehab Exam Limitations: No Limitations - Ebola screening Have you traveled outside of the country in the last 21 days: No Have you had contact with anyone from an Ebola affected area: No Do you have a fever: No - Review of Systems Constitutional: Loss of Appetite, Malaise, Night Sweats, Changes in sleep, Unintentional Wgt. Loss EENT: reports: Nose Congestion Respiratory: reports: No Symptoms reported Cardiac: reports: No Symptoms Reported : reports: No Symptoms Reported Musculoskeletal: reports: Back Pain, Muscle Pain Integumentary: reports: Dryness Endocrine: reports: No Symptoms Reported Hematology: reports: No Symptoms Reported Psychiatric: reports: No Sypmtoms Reported, Judgement Intact, Mood/Affect Appropiate, Orientated x3 Other Systems: Reviewed and Negative Patient History - Patient Medical History Hx Anemia: No Hx Asthma: No Hx Chronic Obstructive Pulmonary Disease (COPD): No Hx Cancer: No Hx Cardiac Disorders: No Hx Congestive Heart Failure: No Hx Hypertension: Yes (on med) Hx Hypercholesterolemia: No Hx Pacemaker: No HX Cerebrovascular Accident: No Hx Seizures: No Hx Dementia: No Hx Diabetes: No Hx Gastrointestinal Disorders: Yes (acid reflux) Hx Liver Disease: No Hx Genitourinary Disorders: No Hx Sexually Transmitted Disorders: No Hx Renal Disease (ESRD): No Hx Thyroid Disease: No Hx Human Immunodeficiency Virus (HIV): No (last 07/15 negative) Hx Hepatitis C: No Hx Depression: No Hx Suicide Attempt: No Hx Bipolar Disorder: No Hx Schizophrenia: No Other Medical History: no suicidal,no homicidal - Patient Surgical History Past Surgical History: Yes Hx Neurologic Surgery: No Hx Cataract Extraction: No Hx Cardiac Surgery: No Hx Lung Surgery: No Hx Breast Surgery: No Hx Breast Biopsy: No Hx Abdominal Surgery: No Hx Appendectomy: No Hx Cholecystectomy: No Hx Genitourinary Surgery: No Hx Section: No Hx Orthopedic Surgery: Yes (left mandible in 1987) Anesthesia Reaction: No - PPD History Previous Implant?: Yes Documented Results: Positive w/proof Implanted On Prior R Admission?: No PPD to be Administered?: No - Smoking Cessation Smoking history: Current every day smoker Have you smoked in the past 12 months: Yes Aproximately how many cigarettes per day: 6 Hx Chewing Tobacco Use: No Initiated information on smoking cessation: Yes 'Breaking Loose' booklet given: 08/14/18 - Substance & Tx. History Substance Use Type: Alcohol, Cocaine, Marijuana - Substances abused Alcohol Substance route: Oral Frequency: Daily Amount used: 1.5 pt. vodka, 5 beers ( 16 oz) Age of first use: 19 Date of last use: 08/13/18 Cocaine Substance route: Smoking Frequency: 3-6 times per week Amount used: $300 Age of first use: 33 Date of last use: 08/13/18 Crack Substance route: Smoking Frequency: 3-6 times per week Amount used: $300 Age of first use: 33 Date of last use: 08/13/18 Marijuana/Hashish Substance route: Oral Frequency: Daily Amount used: 1 bag Age of first use: 17 Date of last use: 08/13/18 Family Disease History - Family Disease History Family History: Denies Admission Physical Exam BHS - Vital Signs Vital Signs: Vital Signs - 24 hr 08/14/18 14:08 Temperature 98 F Pulse Rate 96 H Respiratory 18 Rate Blood Pressure 146/89 - Physical General Appearance: Yes: Moderate Distress, Tremorous, Irritable, Sweating, Anxious HEENTM: Yes: Normal ENT Inspection, KAVON, Pharynx Normal Respiratory: Yes: Lungs Clear, Normal Breath Sounds, No Respiratory Distress Neck: Yes: Within Normal Limits, Trachea in good position, Thyroid enlarged Breast: Yes: Within Normal Limits Cardiology: Yes: Within Normal Limits, Regular Rhythm, Regular Rate, S1, S2 Abdominal: Yes: Within Normal Limits, Normal Bowel Sounds, Non Tender, Flat, Soft Genitourinary: Yes: Within Normal Limits Musculoskeletal: Yes: Back pain, Muscle Pain Extremities: Yes: Tremors 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 (3) Cocaine dependence Current Visit: No Status: Acute Qualifiers: Substance use status: uncomplicated Qualified Code(s): F14.20 - Cocaine dependence, uncomplicated Comment: . (4) GERD (gastroesophageal reflux disease) Current Visit: No Status: Chronic (5) HTN (hypertension) Current Visit: No Status: Chronic Qualifiers: Hypertension type: essential hypertension Qualified Code(s): I10 - Essential (primary) hypertension (6) Nicotine dependence Current Visit: No Status: Chronic Qualifiers: Nicotine product type: cigarettes Comment: . (7) Hepatitis C Current Visit: No Status: Suspected Cleared for Admission S - Detox or Rehab [facility] Level of Care: Medically Managed Detox Regimen/Protocol: Librium Breathalyzer - Breathalyzer Breathalyzer: 0 Urine Drug Screen - Test Device Lot number: [id number] Expiration date: 07/27/19 - Control Is test valid?: Yes - Results Drug screen NEGATIVE: No Urine drug screen results: THC-Marijuana, HAI-Cocaine Inpatient Rehab Admission - Rehab Decision to Admit Inpatient rehab admission?: No
[2018-08-14] MEDS ORDERED: IBUPROFEN 400 MG TABLET (FP) PO PRN (15:12)
[2018-08-14] MEDS ORDERED: MELATONIN 5 MG TABLETS PO PRN (15:12)
[2018-08-14] MEDS ORDERED: MAGNESIUM CITRATE 300 ML BOTTLE PO PRN (15:12)
[2018-08-14] MEDS ORDERED: MENTHOL/PHENOL 1 EACH UD MM PRN (15:12)
[2018-08-14] MEDS ORDERED: MAGNESIUM HYDROX 2400MG/30ML ORAL SUSPENSION 30 ML CUP PO PRN (15:12)
[2018-08-14] MEDS ORDERED: chlordiazePOXIDE HCL 25 MG CAPSULE PO PRN (15:12)
[2018-08-14] MEDS ORDERED: BISMUTH SUBSALICYLATE 262 MG/15 ML BTL PO PRN (15:12)
[2018-08-14] MEDS ORDERED: hydrOXYzine PAMOATE 25 MG CAPSULE (FP) PO PRN (15:12)
[2018-08-14] MEDS ORDERED: MAG HYDROX/AL HYDROX/SIMETH 30 ML UNIT-DOSE CUP PO PRN (15:12)
[2018-08-14] MEDS ORDERED: ACETAMINOPHEN 325 MG TABLET (FP) PO PRN ×2 (15:12)
[2018-08-14] MEDS ORDERED: METHOCARBAMOL 500 MG TABLET PO PRN (15:12)
[2018-08-14 16:31] LABS: HEMATOCRIT 42.6 % (35.4-49); HEMOGLOBIN 14.4 GM/dL (11.7-16.9); MCHC 33.8 g/dl (32.0-35.9); MEAN CELL VOLUME 103.5 fl (80-96); PLATELET COUNT 191 K/MM3 (134-434); RBC 4.12 M/mm3 (4.00-5.60); RDW 12.4 % (11.9-15.9); WHITE BLOOD COUNT 8.8 K/mm3 (4.0-10.0)
[2018-08-14 16:42] LABS: ALBUMIN 3.9 g/dl (3.4-5.0); ALK PHOS 92 U/L (45-117); ANION GAP 5 MMOL/L (8-16); BLOOD UREA NITROGEN 12 mg/dL (7-18); CALCIUM 9.3 mg/dL (8.5-10.1); CHLORIDE 103 mmol/L (98-107); CO2 30 mmol/L (21-32); CREATININE 0.9 mg/dL (0.55-1.3); GLUCOSE,RANDOM 103 mg/dL (74-106); POTASSIUM 3.7 mmol/L (3.5-5.1); SGOT/AST 27 U/L (15-37); SGPT/ALT 44 U/L (13-61); SODIUM 138 mmol/L (136-145); TOT PROT 7.9 g/dl (6.4-8.2)
[2018-08-14] MEDS: chlordiazePOXIDE HCL 25 MG CAPSULE PO SCH ×2 (18:17→22:29)
[2018-08-14 20:19] LABS: URINE APPEARANCE TURBID; URINE BACTERIA 2.9 /hpf (NEGATIVE); URINE BILIRUBIN 1+ (NEGATIVE); URINE COLOR DK YELLOW; URINE GLUCOSE (UA) NEGATIVE (NEGATIVE); URINE KETONE TRACE (NEGATIVE); URINE LEUK ESTERASE TRACE (NEGATIVE); URINE NITRITE NEGATIVE (NEGATIVE); URINE PROTEIN TRACE (NEGATIVE); URINE RBC 1 /hpf (0-4); URINE WBC 2 /hpf (0-5)
[2018-08-14 21:59] LABS: URINE CRYSTALS AMORPHOUS URATE /hpf
[2018-08-14] MEDS: THIAMINE HCL 100 MG TABLET (FP) PO SCH (22:29)
[2018-08-15] MEDS: chlordiazePOXIDE HCL 25 MG CAPSULE PO SCH ×4 (05:40→22:55)
[2018-08-15] MEDS: PRENATAL VITAMINS W/ FOLIC ACID TABLET (FP) PO SCH (10:15)
[2018-08-15] MEDS: HYDROCHLOROTHIAZIDE 25 MG TABLET (FP) PO SCH (10:15)
[2018-08-15] MEDS: amLODIPine BESYLATE 5 MG TABLET (FP) PO SCH (10:15)
[2018-08-15] MEDS: LISINOPRIL 20 MG TABLET (FP) PO SCH (10:15)
--- NOTE | 2018-08-15 15:59 | PN ---
S CIWA - CIWA Score Nausea/Vomitin-No Nausea/No Vomiting Muscle Tremors: 3 Anxiety: 2 Agitation: 1-Slight > Activity Paroxysmal Sweats: 3 Orientation: 0-Oriented Tacttile Disturbances: 2-Mild Itch/Numbness/Burn Auditory Disturbances: 2-Mild Harshness/Frighten Visual Disturbances: 1-Very Mild Sensitivity Headache: 0-None Present CIWA-Ar Total Score: 14 BHS Progress Note (SOAP) Subjective: Sweating, Tremors, Fatigue. Objective: PATIENT A & O X 3. IN NO ACUTE DISTRESS. 08/15/18 15:59 Vital Signs Temperature 98.1 F 08/15/18 14:55 Pulse Rate 91 H 08/15/18 14:55 Respiratory Rate 18 08/15/18 14:55 Blood Pressure 142/86 08/15/18 14:55 O2 Sat by Pulse Oximetry (%) Laboratory Tests 08/14/18 08/14/18 08/14/18 15:00 15:00 15:00 WBC 8.8 RBC 4.12 Hgb 14.4 Hct 42.6 MCV 103.5 H MCH 35.0 H MCHC 33.8 RDW 12.4 Plt Count 191 MPV 10.0 Sodium 138 Potassium 3.7 Chloride 103 Carbon Dioxide 30 Anion Gap 5 L BUN 12 Creatinine 0.9 Creat Clearance w eGFR 86.98 Random Glucose 103 Calcium 9.3 Total Bilirubin 1.0 AST 27 ALT 44 Alkaline Phosphatase 92 Total Protein 7.9 Albumin 3.9 Urine Color Urine Appearance Urine pH Ur Specific [place] Urine Protein Urine Glucose (UA) Urine Ketones Urine Blood Urine Nitrite Urine Bilirubin Urine Urobilinogen Ur Leukocyte Esterase Urine WBC (Auto) Urine RBC (Auto) U Epithel Cells (Auto) Urine Crystals (Auto) Urine Bacteria (Auto) RPR Titer Nonreactive 08/14/18 17:00 WBC RBC Hgb Hct MCV MCH MCHC RDW Plt Count MPV Sodium Potassium Chloride Carbon Dioxide Anion Gap BUN Creatinine Creat Clearance w eGFR Random Glucose Calcium Total Bilirubin AST ALT Alkaline Phosphatase Total Protein Albumin Urine Color Dk yellow Urine Appearance Turbid Urine pH 5.0 Ur Specific [place] 1.029 Urine Protein Trace Urine Glucose (UA) Negative Urine Ketones Trace H Urine Blood Negative Urine Nitrite Negative Urine Bilirubin 1+ H Urine Urobilinogen 1.0 Ur Leukocyte Esterase Trace Urine WBC (Auto) 2 Urine RBC (Auto) 1 U Epithel Cells (Auto) 5.0 Urine Crystals (Auto) Amorphous urate Urine Bacteria (Auto) 2.9 RPR Titer LABS NOTED. Assessment: 08/15/18 16:00 WITHDRAWAL SYMPTOMS. Plan: CONTINUE DETOX. INCREASE DAILY PO FLUID / WATER INTAKE.
[2018-08-15] MEDS: THIAMINE HCL 100 MG TABLET (FP) PO SCH (22:55)
[2018-08-16] MEDS: chlordiazePOXIDE HCL 10 MG CAPSULE PO SCH ×4 (05:15→23:25)
[2018-08-16] MEDS: PRENATAL VITAMINS W/ FOLIC ACID TABLET (FP) PO SCH (10:22)
[2018-08-16] MEDS: LISINOPRIL 20 MG TABLET (FP) PO SCH (10:22)
[2018-08-16] MEDS: amLODIPine BESYLATE 5 MG TABLET (FP) PO SCH (10:22)
[2018-08-16] MEDS: HYDROCHLOROTHIAZIDE 25 MG TABLET (FP) PO SCH (10:22)
--- NOTE | 2018-08-16 15:24 | PN ---
S CIWA - CIWA Score Nausea/Vomitin-No Nausea/No Vomiting Muscle Tremors: 3 Anxiety: 1-Mildly Anxious Agitation: 0-Normal Activity Paroxysmal Sweats: 2 Orientation: 0-Oriented Tacttile Disturbances: 1-Very Mild Itch/Numbness Auditory Disturbances: 2-Mild Harshness/Frighten Visual Disturbances: 1-Very Mild Sensitivity Headache: 0-None Present CIWA-Ar Total Score: 10 BHS Progress Note (SOAP) Subjective: Sweating, Fatigue, Tremors. Objective: PATIENT A & O X 3. IN NO ACUTE DISTRESS. 08/16/18 15:25 Vital Signs Temperature 98.3 F 08/16/18 13:09 Pulse Rate 96 H 08/16/18 13:09 Respiratory Rate 20 08/16/18 13:09 Blood Pressure 153/95 08/16/18 13:09 O2 Sat by Pulse Oximetry (%) Laboratory Tests 08/14/18 08/14/18 08/14/18 15:00 15:00 15:00 WBC 8.8 RBC 4.12 Hgb 14.4 Hct 42.6 MCV 103.5 H MCH 35.0 H MCHC 33.8 RDW 12.4 Plt Count 191 MPV 10.0 Sodium 138 Potassium 3.7 Chloride 103 Carbon Dioxide 30 Anion Gap 5 L BUN 12 Creatinine 0.9 Creat Clearance w eGFR 86.98 Random Glucose 103 Calcium 9.3 Total Bilirubin 1.0 AST 27 ALT 44 Alkaline Phosphatase 92 Total Protein 7.9 Albumin 3.9 Urine Color Urine Appearance Urine pH Ur Specific [place] Urine Protein Urine Glucose (UA) Urine Ketones Urine Blood Urine Nitrite Urine Bilirubin Urine Urobilinogen Ur Leukocyte Esterase Urine WBC (Auto) Urine RBC (Auto) U Epithel Cells (Auto) Urine Crystals (Auto) Urine Bacteria (Auto) RPR Titer Nonreactive 08/14/18 17:00 WBC RBC Hgb Hct MCV MCH MCHC RDW Plt Count MPV Sodium Potassium Chloride Carbon Dioxide Anion Gap BUN Creatinine Creat Clearance w eGFR Random Glucose Calcium Total Bilirubin AST ALT Alkaline Phosphatase Total Protein Albumin Urine Color Dk yellow Urine Appearance Turbid Urine pH 5.0 Ur Specific [place] 1.029 Urine Protein Trace Urine Glucose (UA) Negative Urine Ketones Trace H Urine Blood Negative Urine Nitrite Negative Urine Bilirubin 1+ H Urine Urobilinogen 1.0 Ur Leukocyte Esterase Trace Urine WBC (Auto) 2 Urine RBC (Auto) 1 U Epithel Cells (Auto) 5.0 Urine Crystals (Auto) Amorphous urate Urine Bacteria (Auto) 2.9 RPR Titer LABS NOTED. Assessment: 08/16/18 15:26 WITHDRAWAL SYMPTOMS. HYPERTENSION. Plan: CONTINUE DETOX.
[2018-08-16] MEDS ORDERED: chlordiazePOXIDE HCL 10 MG CAPSULE PO PRN (17:00)
[2018-08-16] MEDS: THIAMINE HCL 100 MG TABLET (FP) PO SCH (23:21)
[2018-08-17] MEDS: chlordiazePOXIDE HCL 10 MG CAPSULE PO SCH ×3 (05:25→17:35)
[2018-08-17] MEDS: HYDROCHLOROTHIAZIDE 25 MG TABLET (FP) PO SCH (10:20)
[2018-08-17] MEDS: PRENATAL VITAMINS W/ FOLIC ACID TABLET (FP) PO SCH (10:20)
[2018-08-17] MEDS: LISINOPRIL 20 MG TABLET (FP) PO SCH (10:20)
[2018-08-17] MEDS: amLODIPine BESYLATE 5 MG TABLET (FP) PO SCH (10:20)
[2018-08-17] MEDS ORDERED: cloNIDine HCL 0.1 MG TABLET PO PRN (13:24)
--- NOTE | 2018-08-17 13:26 | PN ---
[facility] CIWA - CIWA Score Nausea/Vomitin-No Nausea/No Vomiting Muscle Tremors: 1-None Visible, but [place] Anxiety: 2 Agitation: 1-Slight > Activity Paroxysmal Sweats: 1-Minimal Palms Moist Orientation: 0-Oriented Tacttile Disturbances: 0-None Auditory Disturbances: 0-None Visual Disturbances: 0-None Headache: 0-None Present CIWA-Ar Total Score: 5 S Progress Note (SOAP) Subjective: feeling better discuss aftercare with staff patient refilled 30 days supply for medications on 08/07/18 Objective: 08/17/18 13:23 Vital Signs Temperature 98.2 F 08/17/18 13:18 Pulse Rate 91 H 08/17/18 13:18 Respiratory Rate 20 08/17/18 13:18 Blood Pressure 155/97 08/17/18 13:18 O2 Sat by Pulse Oximetry (%) Laboratory Last Values WBC 8.8 K/mm3 (4.0-10.0) 08/14/18 15:00 RBC 4.12 M/mm3 (4.00-5.60) 08/14/18 15:00 Hgb 14.4 GM/dL (11.7-16.9) 08/14/18 15:00 Hct 42.6 % (35.4-49) 08/14/18 15:00 MCV 103.5 fl (80-96) H 08/14/18 15:00 MCH 35.0 pg (25.7-33.7) H 08/14/18 15:00 MCHC 33.8 g/dl (32.0-35.9) 08/14/18 15:00 RDW 12.4 % (11.9-15.9) 08/14/18 15:00 Plt Count 191 K/MM3 (134-434) 08/14/18 15:00 MPV 10.0 fl (7.5-11.1) 08/14/18 15:00 Sodium 138 mmol/L (136-145) 08/14/18 15:00 Potassium 3.7 mmol/L (3.5-5.1) 08/14/18 15:00 Chloride 103 mmol/L (98-107) 08/14/18 15:00 Carbon Dioxide 30 mmol/L (21-32) 08/14/18 15:00 Anion Gap 5 MMOL/L (8-16) L 08/14/18 15:00 BUN 12 mg/dL (7-18) 08/14/18 15:00 Creatinine 0.9 mg/dL (0.55-1.3) 08/14/18 15:00 Creat Clearance w eGFR 86.98 (>60) 08/14/18 15:00 Random Glucose 103 mg/dL (74-106) 08/14/18 15:00 Calcium 9.3 mg/dL (8.5-10.1) 08/14/18 15:00 Total Bilirubin 1.0 mg/dL (0.2-1) 08/14/18 15:00 AST 27 U/L (15-37) 08/14/18 15:00 ALT 44 U/L (13-61) 08/14/18 15:00 Alkaline Phosphatase 92 U/L (45-117) 08/14/18 15:00 Total Protein 7.9 g/dl (6.4-8.2) 08/14/18 15:00 Albumin 3.9 g/dl (3.4-5.0) 08/14/18 15:00 Urine Color Dk yellow 08/14/18 17:00 Urine Appearance Turbid 08/14/18 17:00 Urine pH 5.0 (5.0-8.0) 08/14/18 17:00 Ur Specific [place] 1.029 (1.010-1.035) 08/14/18 17:00 Urine Protein Trace (NEGATIVE) 08/14/18 17:00 Urine Glucose (UA) Negative (NEGATIVE) 08/14/18 17:00 Urine Ketones Trace (NEGATIVE) H 08/14/18 17:00 Urine Blood Negative (NEGATIVE) 08/14/18 17:00 Urine Nitrite Negative (NEGATIVE) 08/14/18 17:00 Urine Bilirubin 1+ (NEGATIVE) H 08/14/18 17:00 Urine Urobilinogen 1.0 mg/dL (0.2-1.0) 08/14/18 17:00 Ur Leukocyte Esterase Trace (NEGATIVE) 08/14/18 17:00 Urine WBC (Auto) 2 /hpf (0-5) 08/14/18 17:00 Urine RBC (Auto) 1 /hpf (0-4) 08/14/18 17:00 U Epithel Cells (Auto) 5.0 /HPF (0-5/HPF) 08/14/18 17:00 Urine Crystals (Auto) Amorphous urate /hpf 08/14/18 17:00 Urine Bacteria (Auto) 2.9 /hpf (NEGATIVE) 08/14/18 17:00 RPR Titer Nonreactive (NONREACTIVE) 08/14/18 15:00 lab noted Assessment: 08/17/18 13:25 mild withdrawal sx Plan: continue detox
[2018-08-17] MEDS: THIAMINE HCL 100 MG TABLET (FP) PO SCH (22:52)
[2018-08-18] MEDS: chlordiazePOXIDE HCL 10 MG CAPSULE PO SCH (06:00)
[2018-08-18 09:35] VITALS: BP 145/80; PULSE 85; TEMP 96.7
[2018-08-18] MEDS: amLODIPine BESYLATE 5 MG TABLET (FP) PO SCH (10:18)
[2018-08-18] MEDS: PRENATAL VITAMINS W/ FOLIC ACID TABLET (FP) PO SCH (10:18)
[2018-08-18] MEDS: LISINOPRIL 20 MG TABLET (FP) PO SCH (10:18)
[2018-08-18] MEDS: HYDROCHLOROTHIAZIDE 25 MG TABLET (FP) PO SCH (10:18)
--- NOTE | 2018-08-18 13:50 | DS ---
[facility] Detox Discharge Summary Admission Date: 08/14/18 Discharge Date: 08/18/18 - History Present History: Alcohol Dependence, Cannabis Dependence, Cocaine Dependence Additional Comments: PATIENT SCHEDULED FOR DISCHARGE FROM DETOX UNIT TO DAY. PATIENT GOING TO [facility] ([facility]) FOR AFTERCARE. PATIENT WAS DISCHARGED FROM DETOX UNIT TO BE TAKEN OVER TO REHAB UNIT IN STABLE MEDICAL CONDITION. Pertinent Past History: HTN, Hep C (Treated), History Of Syncope, History Of Weight Loss, History Of G.E.R.D., Nicotine Dependence. - Physical Exam Results Vital Signs: Vital Signs Temperature 96.7 F L 08/18/18 09:34 Pulse Rate 85 08/18/18 09:34 Respiratory Rate 18 08/18/18 09:34 Blood Pressure 145/80 08/18/18 09:34 O2 Sat by Pulse Oximetry (%) Pertinent Admission Physical Exam Findings: WITHDRAWAL SYMPTOMS. Laboratory Tests 08/14/18 08/14/18 08/14/18 15:00 15:00 15:00 WBC 8.8 RBC 4.12 Hgb 14.4 Hct 42.6 MCV 103.5 H MCH 35.0 H MCHC 33.8 RDW 12.4 Plt Count 191 MPV 10.0 Sodium 138 Potassium 3.7 Chloride 103 Carbon Dioxide 30 Anion Gap 5 L BUN 12 Creatinine 0.9 Creat Clearance w eGFR 86.98 Random Glucose 103 Calcium 9.3 Total Bilirubin 1.0 AST 27 ALT 44 Alkaline Phosphatase 92 Total Protein 7.9 Albumin 3.9 Urine Color Urine Appearance Urine pH Ur Specific [place] Urine Protein Urine Glucose (UA) Urine Ketones Urine Blood Urine Nitrite Urine Bilirubin Urine Urobilinogen Ur Leukocyte Esterase Urine WBC (Auto) Urine RBC (Auto) U Epithel Cells (Auto) Urine Crystals (Auto) Urine Bacteria (Auto) RPR Titer Nonreactive 08/14/18 17:00 WBC RBC Hgb Hct MCV MCH MCHC RDW Plt Count MPV Sodium Potassium Chloride Carbon Dioxide Anion Gap BUN Creatinine Creat Clearance w eGFR Random Glucose Calcium Total Bilirubin AST ALT Alkaline Phosphatase Total Protein Albumin Urine Color Dk yellow Urine Appearance Turbid Urine pH 5.0 Ur Specific [place] 1.029 Urine Protein Trace Urine Glucose (UA) Negative Urine Ketones Trace H Urine Blood Negative Urine Nitrite Negative Urine Bilirubin 1+ H Urine Urobilinogen 1.0 Ur Leukocyte Esterase Trace Urine WBC (Auto) 2 Urine RBC (Auto) 1 U Epithel Cells (Auto) 5.0 Urine Crystals (Auto) Amorphous urate Urine Bacteria (Auto) 2.9 RPR Titer LABS NOTED. - Treatment Hospital Course: Detox Protocol Followed, Detoxed Safely, Responded well, Discharged Condition Good, Rehab Referral Accepted Patient has Accepted a Rehab Referral to: [facility] ([place], [place]). - Medication Discharge Medications: Ambulatory Orders Amlodipine Besylate [Norvasc -] 5 mg PO DAILY #30 tablet 03/03/18 Hydrochlorothiazide [Hctz -] 25 mg PO DAILY #30 tablet 03/03/18 Lisinopril [Prinivil] 20 mg PO DAILY 30 Days #30 tablet 03/03/18 - Diagnosis (1) Alcohol dependence with uncomplicated withdrawal Status: Acute (2) Cannabis dependence Status: Acute (3) Cocaine dependence Status: Acute Qualifiers: Substance use status: uncomplicated Qualified Code(s): F14.20 - Cocaine dependence, uncomplicated (4) GERD (gastroesophageal reflux disease) Status: Chronic Qualifiers: Esophagitis presence: esophagitis presence not specified Qualified Code(s) : K21.9 - Gastro-esophageal reflux disease without esophagitis (5) HTN (hypertension) Status: Chronic Qualifiers: Hypertension type: essential hypertension Qualified Code(s): I10 - Essential (primary) hypertension (6) Nicotine dependence Status: Chronic Qualifiers: Nicotine product type: cigarettes Substance use status: uncomplicated Qualified Code(s): F17.210 - Nicotine dependence, cigarettes, uncomplicated (7) Hepatitis C Status: Suspected Qualifiers: Viral hepatitis chronicity: chronic Hepatic coma status: without hepatic coma Qualified Code(s): B18.2 - Chronic viral hepatitis C - AMA Did Patient Leave Against Medical Advice: No
== END 2018-08-18 12:05 | disposition other institution (70) | DRG 774 ==
LOC: YASAS 13:15 → Y3N 15:25
PROVIDERS: ADMIT Surgery; ATTEND Surgery
PROC: HZ2ZZZZ Detoxification Services for Substance Abuse Treatment (ICD-10-PCS; principal; 2018-08-14)
DX: F10.230 Alcohol dependence with withdrawal, uncomplicated (principal); F14.20 Cocaine dependence, uncomplicated; F12.20 Cannabis dependence, uncomplicated; F17.210 Nicotine dependence, cigarettes, uncomplicated; I10 Essential (primary) hypertension; B18.2 Chronic viral hepatitis C; K21.9 Gastro-esophageal reflux disease without esophagitis; R63.4 Abnormal weight loss; Z68.23 Body mass index [BMI] 23.0-23.9, adult; Z59.0 Homelessness
CPT/HCPCS: 36415; 80053; 81003; 85027; 86593

== ENCOUNTER 2018-08-18 12:37 | Inpatient (IN) | payer OTHER ==
--- NOTE | 2018-08-18 13:51 | HP ---
[facility] Rehab Assess/Revision - Admission History Admitted to Rehab from: [facility] Date of Admission to Rehab: 08/18/2018 - Vital signs Vital Signs: Vital Signs Period Temp Pulse Resp BP Sys/Cohen Pulse Ox Last 24 Hr 98 F 93 18 139/91 - Findings Detox History & Physical reviewed: Yes Concur with findings: Yes Comments/Additional Findings: PATIENT'S MEDICAL / MEDICATION HISTORY REVIEWED PRIOR TO DISCHARGE FROM DETOX UNIT. PATIENT WAS DISCHARGED FROM DETOX UNIT TO BE TAKEN OVER TO REHAB UNIT IN STABLE MEDICAL CONDITION. Inpatient Rehab Admission - Rehab Decision to Admit Inpatient rehab admission?: Yes - Initial Determination Are CD services needed?: Yes Free of communicable disease: Yes Not in need of hospitalization: Yes - Rehab Admission Criteria Previous failed treatment: Yes Poor recovery environment: Yes Comorbidities: Yes Lacks judgement: No Patient is meeting Inpatient Rehab admission criteria:: Yes
[2018-08-18] MEDS ORDERED: ACETAMINOPHEN 325 MG TABLET (FP) PO PRN (13:52)
[2018-08-18] MEDS ORDERED: P-EPHED 60MG/TRIPROLIDI 2.5MG TABLET PO PRN (13:52)
[2018-08-18] MEDS ORDERED: MAGNESIUM CITRATE 300 ML BOTTLE PO PRN (13:52)
[2018-08-18] MEDS ORDERED: MENTHOL/PHENOL 1 EACH UD MM PRN (13:52)
[2018-08-18] MEDS ORDERED: MAGNESIUM HYDROX 2400MG/30ML ORAL SUSPENSION 30 ML CUP PO PRN (13:52)
[2018-08-18] MEDS ORDERED: guaiFENesin 200 MG/10 ML 10 ML UNIT-DOSE CUPS PO PRN (13:52)
[2018-08-18] MEDS ORDERED: LOPERAMIDE HCL 2 MG CAPSULE PO PRN (13:52)
[2018-08-18] MEDS ORDERED: MAG HYDROX/AL HYDROX/SIMETH 30 ML UNIT-DOSE CUP PO PRN (13:52)
[2018-08-18] MEDS ORDERED: MELATONIN 5 MG TABLETS PO PRN (22:00)
[2018-08-18] MEDS ORDERED: THIAMINE HCL 100 MG TABLET (FP) PO SCH (22:00)
[2018-08-19 06:31] VITALS: BP 144/84; PULSE 79; TEMP 97.9
[2018-08-19] MEDS ORDERED: amLODIPine BESYLATE 5 MG TABLET (FP) PO SCH (10:00)
[2018-08-19] MEDS ORDERED: PRENATAL VITAMINS W/ FOLIC ACID TABLET (FP) PO SCH (10:00)
[2018-08-19] MEDS ORDERED: LISINOPRIL 20 MG TABLET (FP) PO SCH (10:00)
[2018-08-19] MEDS ORDERED: HYDROCHLOROTHIAZIDE 25 MG TABLET (FP) PO SCH (10:00)
--- NOTE | 2018-08-19 11:18 | PN ---
[facility] Progress Note Note: PT COMPLETED DETOX ON 3N FROM 08/14 - 08/18/18 AND REFERRED TO REHAB SAME DAY. PT CAME TO PROVIDER TODAY STATING 'I DON'T WANT TO BE HERE FOR 28 DAYS, I'M LEAVING TODAY. I'M GOING BACK TO MY OUT PATIENT PROGRAM". PT REPORTS HE IS WITH [facility] ON [address] [place] [address]. PT WAS SPOKEN TO BY HIS COUNSELOR LAINE CHAWLA AND THIS MANAGER RETENTION ABOUT STAYING IN TREATMENT BUT PATIENT WAS VERY INSISTENT IN HIS DECISION TO LEAVE TODAY. PT ALSO REPORTS HE HAS A PCP AT [facility] ON [facility] FOR MEDICAL MANAGEMENT. PT REPORTS HE HAS ALL HIS HOME MEDS IN HIS SECURITY PROPERTY. ALERT O X 3. OOB AMBULATE WITH STEADY GAIT. DENIES S/H/I. Home Medications Medication Instructions Recorded Amlodipine Besylate [Norvasc -] 5 mg PO DAILY #30 tablet 03/03/18 Hydrochlorothiazide [Hctz -] 25 mg PO DAILY #30 tablet 03/03/18 Lisinopril [Prinivil] 20 mg PO DAILY 30 Days #30 tablet 03/03/18 Vital Signs - 24 hr 08/18/18 08/19/18 08/19/18 13:25 00:30 03:30 Temperature 98 F Pulse Rate 93 H Respiratory 18 20 20 Rate Blood Pressure 139/91 08/19/18 06:30 Temperature 97.9 F Pulse Rate 79 Respiratory 18 Rate Blood Pressure 144/84 NAD PLAN:PT SIGNED OUT AMA FOLLOW UP WITH CD AFTERCARE WITH [facility] FOLLOW UP WITH PCP AT [facility] WITHIN 1-2 WEEKS AFTER DISCHARGING.
== END 2018-08-19 11:55 | disposition left against medical advice (07) | DRG 770 ==
LOC: YASAS 12:37 → Y5N 12:38
PROVIDERS: ADMIT Neuromusculoskeletal Medicine & OMM; ATTEND Neuromusculoskeletal Medicine & OMM
PROC: HZ42ZZZ Group Counseling for Substance Abuse Treatment, Cognitive-Behavioral (ICD-10-PCS; principal; 2018-08-18)
DX: F10.20 Alcohol dependence, uncomplicated (principal); F14.20 Cocaine dependence, uncomplicated; F12.20 Cannabis dependence, uncomplicated; F17.210 Nicotine dependence, cigarettes, uncomplicated; I10 Essential (primary) hypertension; K21.9 Gastro-esophageal reflux disease without esophagitis

== ENCOUNTER 2022-10-28 15:40 | Inpatient (IN) | payer OTHER ==
[2022-10-28 16:48] VITALS: BMI 24.3
[2022-10-28] MEDS ORDERED: LOPERAMIDE HCL 2 MG CAPSULE PO PRN (18:48)
[2022-10-28] MEDS ORDERED: METHOCARBAMOL 500 MG TABLET PO PRN (18:48)
[2022-10-28] MEDS ORDERED: chlordiazePOXIDE HCL 25 MG CAPSULE PO PRN (18:48)
[2022-10-28] MEDS ORDERED: BENZOCAINE/MENTHOL (CHLORASEPTIC ) LOZENGE MM PRN (18:48)
[2022-10-28] MEDS ORDERED: MAG HYDROX/AL HYDROX/SIMETH 30 ML UNIT-DOSE CUP PO PRN (18:48)
[2022-10-28] MEDS ORDERED: guaiFENesin 600 MG TABLET.ER (FP) PO PRN (18:48)
[2022-10-28] MEDS ORDERED: POLYETHYLENE GLYCOL (HEALTHYLAX) 3350 17 GM PACKET PO PRN (18:48)
[2022-10-28] MEDS ORDERED: ONDANSETRON *ODT* 4 MG TABLET SL PRN (18:48)
[2022-10-28] MEDS ORDERED: MAGNESIUM HYDROX 2400MG/30ML ORAL SUSPENSION 30 ML CUP PO PRN (18:48)
[2022-10-28] MEDS ORDERED: hydrOXYzine PAMOATE 25 MG CAPSULE (FP) PO PRN (18:48)
[2022-10-28] MEDS ORDERED: DICYCLOMINE HCL 10 MG CAPSULE PO PRN (18:48)
[2022-10-28] MEDS ORDERED: BISMUTH SUBSALICYLATE 524 MG/30 ML PO PRN (18:48)
[2022-10-28] MEDS ORDERED: IBUPROFEN 400 MG TABLET (FP) PO PRN (18:48)
[2022-10-28] MEDS ORDERED: ACETAMINOPHEN 325 MG TABLET (FP) PO PRN (18:48)
[2022-10-28] MEDS ORDERED: NICOTINE 10 MG CARTRIDGE (INHALER) IH PRN (18:48)
[2022-10-28] MEDS ORDERED: BENZONATATE 200 MG CAPSULE PO PRN (18:48)
[2022-10-28] MEDS ORDERED: NALOXONE HCL (KLOXXADO) 8 MG SPRAY NS PRN (18:48)
[2022-10-28] MEDS ORDERED: IBUPROFEN 600 MG TABLET (FP) PO PRN (18:48)
[2022-10-28] MEDS ORDERED: NALOXONE HCL 0.4 MG/ML VIAL IM PRN (18:48)
[2022-10-28] MEDS: MELATONIN 5 MG TABLETS PO SCH (22:48)
[2022-10-28] MEDS: THIAMINE HCL 100 MG TABLET (FP) PO SCH (22:48)
[2022-10-28] MEDS: chlordiazePOXIDE HCL 25 MG CAPSULE PO SCH (22:48)
[2022-10-29] MEDS: chlordiazePOXIDE HCL 25 MG CAPSULE PO SCH ×4 (05:54→23:05)
[2022-10-29] MEDS ORDERED: PRENATAL VITAMINS W/ FOLIC ACID TABLET (FP) PO SCH (10:00)
[2022-10-29 11:43] LABS: HEMATOCRIT 24.4 % (35.4-49); MCHC 28.3 g/dl (32.0-35.9); MEAN CELL VOLUME 67.4 fl (80-96); MEAN PLT VOLUME 8.4 fl (7.5-11.1); PLATELET COUNT 271 10^3/uL (134-434); RBC 3.62 M/mm3 (4.00-5.60); RDW 20.5 % (11.9-15.9); WHITE BLOOD COUNT 6.6 K/mm3 (4.0-10.0)
[2022-10-29 11:44] LABS: MCH 19.1 pg (25.7-33.7)
[2022-10-29 11:51] LABS: HEMOGLOBIN 6.9 GM/dL (11.7-16.9)
[2022-10-29 12:39] LABS: POTASSIUM 4.1 mmol/L (3.5-5.1)
[2022-10-29 12:43] LABS: CALCIUM 8.3 mg/dL (8.5-10.1)
[2022-10-29 12:44] LABS: ALBUMIN 2.8 g/dl (3.4-5.0); BLOOD UREA NITROGEN 13.3 mg/dL (7-18)
[2022-10-29 12:47] LABS: CREATININE 0.9 mg/dL (0.55-1.3)
[2022-10-29 12:49] LABS: BILIRUBIN,TOTAL 0.3 mg/dL (0.2-1); TOT PROT 5.8 g/dl (6.4-8.2)
[2022-10-29 13:14] VITALS: BP 131/77; PULSE 74; RESP 17; TEMP 98.4
[2022-10-29] MEDS: THIAMINE HCL 100 MG TABLET (FP) PO SCH (23:05)
[2022-10-29] MEDS: MELATONIN 5 MG TABLETS PO SCH (23:05)
[2022-10-30] MEDS ORDERED: chlordiazePOXIDE HCL 25 MG CAPSULE PO SCH (05:00)
[2022-10-30] MEDS ORDERED: amLODIPine BESYLATE 5 MG TABLET (FP) PO SCH (10:00)
[2022-10-30] MEDS ORDERED: HYDROCHLOROTHIAZIDE 25 MG TABLET (FP) PO SCH (10:00)
[2022-10-30] MEDS ORDERED: LISINOPRIL 20 MG TABLET PO SCH (10:00)
[2022-10-31] MEDS ORDERED: chlordiazePOXIDE HCL 10 MG CAPSULE PO PRN
[2022-10-31] MEDS ORDERED: chlordiazePOXIDE HCL 10 MG CAPSULE PO SCH (05:00)
[2022-11-01] MEDS ORDERED: chlordiazePOXIDE HCL 10 MG CAPSULE PO SCH (05:00)
[2022-11-02] MEDS ORDERED: chlordiazePOXIDE HCL 10 MG CAPSULE PO ONE (05:00)
== END 2022-10-29 17:00 | disposition short-term general hospital (02) | DRG 774 ==
LOC: YASAS 15:40 → Y3N 18:21
PROVIDERS: ADMIT Allergy & Immunology; ATTEND Surgery
PROC: HZ2ZZZZ Detoxification Services for Substance Abuse Treatment (ICD-10-PCS; principal; 2022-10-28)
DX: F10.230 Alcohol dependence with withdrawal, uncomplicated (principal); F14.20 Cocaine dependence, uncomplicated; F12.20 Cannabis dependence, uncomplicated; F17.210 Nicotine dependence, cigarettes, uncomplicated; D64.9 Anemia, unspecified; I10 Essential (primary) hypertension; K21.9 Gastro-esophageal reflux disease without esophagitis; Z59.01 Sheltered homelessness
CPT/HCPCS: 36415; 80053; 85027; 86780; 87811

== ENCOUNTER 2022-10-29 13:57 | Emergency (ER) | payer OTHER ==
[2022-10-29 14:20] VITALS: BP 129/73; PULSE 72; RESP 18; TEMP 97.6; BMI 26.4
[2022-10-29 15:26] LABS: BASO % 1.6 % (0-2.0); EOS % 2.5 % (0-4.5); HEMATOCRIT 26.7 % (35.4-49); HEMOGLOBIN 7.5 GM/dL (11.7-16.9); LYMPH % 19.9 % (8-40); MEAN CELL VOLUME 68.7 fl (80-96); MEAN PLT VOLUME 8.4 fl (7.5-11.1); MONO % 11.5 % (3.8-10.2); NEUT % 64.5 % (42.8-82.8); PLATELET COUNT 269 10^3/uL (134-434); RBC 3.88 M/mm3 (4.00-5.60); RDW 20.2 % (11.9-15.9); WHITE BLOOD COUNT 7.7 K/mm3 (4.0-10.0)
[2022-10-29 15:28] LABS: MCH 19.2 pg (25.7-33.7)
[2022-10-29 15:34] LABS: INR 1.33 (0.83-1.09); PROTHROMBIN TIME (PATIENT) 15.4 SEC (9.7-13.0)
[2022-10-29 15:37] LABS: ACTIVATED PTT 29.2 SECONDS (25.2-36.5)
[2022-10-29 15:52] LABS: POTASSIUM 4.2 mmol/L (3.5-5.1)
[2022-10-29 15:54] LABS: CALCIUM 8.5 mg/dL (8.5-10.1)
[2022-10-29 15:55] LABS: ALBUMIN 2.8 g/dl (3.4-5.0); BLOOD UREA NITROGEN 10.8 mg/dL (7-18)
[2022-10-29 15:58] LABS: CREATININE 0.9 mg/dL (0.55-1.3)
[2022-10-29 15:59] LABS: BILIRUBIN,TOTAL 0.2 mg/dL (0.2-1); TOT PROT 6.2 g/dl (6.4-8.2)
== END 2022-10-29 17:00 | disposition left against medical advice (07) ==
LOC: JER 13:57
DX: D64.9 Anemia, unspecified (principal)
CPT/HCPCS: 36415; 71046-TC-FY; 80053; 83010; 83540; 83550; 83615; 85025; 85610; 85730; 86850; 86900; 86901; 99284-25

== ENCOUNTER 2023-04-17 15:28 | Inpatient (IN) | payer OTHER ==
[2023-04-17 16:51] VITALS: BMI 19.9
[2023-04-17] MEDS ORDERED: POLYETHYLENE GLYCOL (HEALTHYLAX) 3350 17 GM PACKET PO PRN (18:52)
[2023-04-17] MEDS ORDERED: guaiFENesin 600 MG TABLET.ER (FP) PO PRN (18:52)
[2023-04-17] MEDS ORDERED: ONDANSETRON *ODT* 4 MG TABLET SL PRN (18:52)
[2023-04-17] MEDS ORDERED: LOPERAMIDE HCL 2 MG CAPSULE PO PRN (18:52)
[2023-04-17] MEDS ORDERED: AMMONIUM LACTATE 12% LOTION 225 GM BOTTLE TP PRN (18:52)
[2023-04-17] MEDS ORDERED: BISMUTH SUBSALICYLATE 524 MG/30 ML PO PRN (18:52)
[2023-04-17] MEDS ORDERED: BENZOCAINE/MENTHOL (CHLORASEPTIC ) LOZENGE MM PRN (18:52)
[2023-04-17] MEDS ORDERED: DICYCLOMINE HCL 10 MG CAPSULE PO PRN (18:52)
[2023-04-17] MEDS ORDERED: MAGNESIUM HYDROX 2400MG/30ML ORAL SUSPENSION 30 ML CUP PO PRN (18:52)
[2023-04-17] MEDS ORDERED: hydrOXYzine PAMOATE 25 MG CAPSULE (FP) PO PRN (18:52)
[2023-04-17] MEDS ORDERED: P-EPHED 60MG/TRIPROLIDI 2.5MG TABLET PO PRN (18:52)
[2023-04-17] MEDS ORDERED: ACETAMINOPHEN 325 MG TABLET (FP) PO PRN (18:52)
[2023-04-17] MEDS ORDERED: MAG HYDROX/AL HYDROX/SIMETH 30 ML UNIT-DOSE CUP PO PRN (18:52)
[2023-04-17] MEDS ORDERED: BENZONATATE 200 MG CAPSULE PO PRN (18:52)
[2023-04-17] MEDS ORDERED: chlorproMAZINE HCL 25 MG TABLET PO PRN (19:50)
[2023-04-17] MEDS: THIAMINE HCL 100 MG TABLET (FP) PO SCH (22:35)
[2023-04-17] MEDS: MELATONIN 5 MG TABLETS PO SCH (22:35)
[2023-04-18] MEDS: LISINOPRIL 20 MG TABLET PO SCH (09:52)
[2023-04-18] MEDS: PRENATAL VITAMINS W/ FOLIC ACID TABLET (FP) PO SCH (09:52)
[2023-04-18] MEDS: amLODIPine BESYLATE 5 MG TABLET (FP) PO SCH (09:52)
[2023-04-18] MEDS: PANTOPRAZOLE 40 MG TABLET PO SCH (09:52)
[2023-04-18] MEDS: diazePAM 5 MG TABLET PO SCH ×3 (10:21→22:16)
[2023-04-18 10:36] LABS: CHLORIDE 103 mmol/L (98-107); POTASSIUM 4.3 mmol/L (3.5-5.1); SODIUM 133 mmol/L (136-145)
[2023-04-18 10:39] LABS: ALBUMIN 1.8 g/dl (3.4-5.0); ANION GAP 6 mmol/L (4-13); CO2 25 mmol/L (21-32); GLUCOSE,RANDOM 94 mg/dL (74-106)
[2023-04-18 10:41] LABS: BLOOD UREA NITROGEN 14.2 mg/dL (7-18)
[2023-04-18 10:42] LABS: SGPT/ALT 23 U/L (13-61)
[2023-04-18 10:43] LABS: CREATININE 0.8 mg/dL (0.55-1.3); SGOT/AST 67 U/L (15-37)
[2023-04-18 10:45] LABS: ALK PHOS 189 U/L (45-117)
[2023-04-18 10:46] LABS: HEMATOCRIT 25.9 % (35.4-49); MCH 24.7 pg (25.7-33.7); MCHC 30.9 g/dl (32.0-35.9); MEAN PLT VOLUME 7.5 fl (7.5-11.1); PLATELET COUNT 437 10^3/uL (134-434); RBC 3.24 M/mm3 (4.00-5.60); RDW 25.9 % (11.9-15.9); WHITE BLOOD COUNT 16.8 K/mm3 (4.0-10.0)
[2023-04-18 11:00] LABS: TOT PROT 7.3 g/dl (6.4-8.2)
[2023-04-18] MEDS: THIAMINE HCL 100 MG TABLET (FP) PO SCH (22:15)
[2023-04-18] MEDS: MELATONIN 5 MG TABLETS PO SCH (22:17)
[2023-04-19] MEDS: diazePAM 5 MG TABLET PO SCH ×3 (05:39→22:53)
[2023-04-19] MEDS: amLODIPine BESYLATE 5 MG TABLET (FP) PO SCH (10:11)
[2023-04-19] MEDS: PANTOPRAZOLE 40 MG TABLET PO SCH (10:11)
[2023-04-19] MEDS: LISINOPRIL 20 MG TABLET PO SCH (10:11)
[2023-04-19] MEDS: FERROUS SO4 325 MG TABLET (FP) PO SCH (10:12)
[2023-04-19] MEDS: PRENATAL VITAMINS W/ FOLIC ACID TABLET (FP) PO SCH (10:12)
[2023-04-19 13:36] LABS: EPI CELLS 10 /uL (0-25.1); HYALINE CASTS 7 /uL (0-3.1); PH,URINE 5.5 (5.0-8.0); URINE APPEARANCE CLOUDY; URINE BACTERIA 576 /uL (0-1359); URINE BILIRUBIN 1+ (NEGATIVE); URINE COLOR DK YELLOW; URINE GLUCOSE (UA) NEGATIVE (NEGATIVE); URINE KETONE NEGATIVE (NEGATIVE); URINE LEUK ESTERASE NEGATIVE (NEGATIVE); URINE NITRITE NEGATIVE (NEGATIVE); URINE PROTEIN 1+ (NEGATIVE); URINE RBC 25 /uL (0-23.9); URINE UROBILINOGEN 0.2 mg/dL (0.2-1.0)
[2023-04-19 14:25] LABS: URINE WBC 86 /uL (0-25.8)
[2023-04-19] MEDS: MELATONIN 5 MG TABLETS PO SCH (22:53)
[2023-04-19] MEDS: THIAMINE HCL 100 MG TABLET (FP) PO SCH (22:54)
[2023-04-20] MEDS: diazePAM 5 MG TABLET PO SCH ×2 (05:34→17:17)
[2023-04-20] MEDS: PRENATAL VITAMINS W/ FOLIC ACID TABLET (FP) PO SCH (10:18)
[2023-04-20] MEDS: LISINOPRIL 20 MG TABLET PO SCH (10:18)
[2023-04-20] MEDS: amLODIPine BESYLATE 5 MG TABLET (FP) PO SCH (10:19)
[2023-04-20] MEDS: PANTOPRAZOLE 40 MG TABLET PO SCH (10:19)
[2023-04-20] MEDS: MELATONIN 5 MG TABLETS PO SCH (22:16)
[2023-04-20] MEDS: THIAMINE HCL 100 MG TABLET (FP) PO SCH (22:17)
[2023-04-21] MEDS ORDERED: diazePAM 5 MG TABLET PO ONE (06:00)
[2023-04-21] MEDS: LISINOPRIL 20 MG TABLET PO SCH (09:16)
[2023-04-21] MEDS: FERROUS SO4 325 MG TABLET (FP) PO SCH (09:16)
[2023-04-21] MEDS: amLODIPine BESYLATE 5 MG TABLET (FP) PO SCH (09:16)
[2023-04-21] MEDS: PANTOPRAZOLE 40 MG TABLET PO SCH (09:16)
[2023-04-21] MEDS: PRENATAL VITAMINS W/ FOLIC ACID TABLET (FP) PO SCH (09:16)
[2023-04-21 09:21] VITALS: BP 113/73; PULSE 107; RESP 18; TEMP 98.2
[2023-04-21 10:20] LABS: BASO % 0.3 % (0-2.0); EOS % 0.3 % (0-4.5); HEMOGLOBIN 7.7 GM/dL (11.7-16.9); LYMPH % 6.2 % (8-40); MCH 25.1 pg (25.7-33.7); MCHC 30.8 g/dl (32.0-35.9); MEAN CELL VOLUME 81.3 fl (80-96); MEAN PLT VOLUME 7.8 fl (7.5-11.1); MONO % 8.9 % (3.8-10.2); NEUT % 84.3 % (42.8-82.8); PLATELET COUNT 364 10^3/uL (134-434); RBC 3.08 M/mm3 (4.00-5.60); RDW 25.3 % (11.9-15.9); WHITE BLOOD COUNT 19.6 K/mm3 (4.0-10.0)
[2023-04-21 11:19] LABS: ANISOCYTOSIS 2+; MACROCYTOSIS 0
== END 2023-04-21 09:55 | disposition home or self-care (01) | DRG 774 ==
LOC: YASAS 15:28 → Y3N 19:32 → Y6N 22:57
PROVIDERS: ADMIT Allergy & Immunology; ATTEND Surgery
PROC: HZ2ZZZZ Detoxification Services for Substance Abuse Treatment (ICD-10-PCS; principal; 2023-04-17)
DX: F10.230 Alcohol dependence with withdrawal, uncomplicated (principal); F14.20 Cocaine dependence, uncomplicated; F12.20 Cannabis dependence, uncomplicated; F19.24 Other psychoactive substance dependence with psychoactive substance-induced mood disorder; D50.9 Iron deficiency anemia, unspecified; I10 Essential (primary) hypertension; K21.9 Gastro-esophageal reflux disease without esophagitis; B18.2 Chronic viral hepatitis C; C18.9 Malignant neoplasm of colon, unspecified; R63.4 Abnormal weight loss; Z68.1 Body mass index [BMI] 19.9 or less, adult; Z93.3 Colostomy status; Z87.891 Personal history of nicotine dependence
CPT/HCPCS: 36415; 80053; 80307; 81003; 85025; 85027; 86780; 87635; 87811